=== PATIENT | male | born 1965 | race Asian ===

== ENCOUNTER 2020-08-23 08:09 | Outpatient (REF) | payer OTHER, SELFPAY ==
[2020-08-23 09:27] LABS: Alanine Aminotransferase 39 U/L (0-40); Albumin Level 4.3 g/dL (3.5-5.0); Alkaline Phosphatase 95 U/L (39-117); Anion Gap 14 (12-20); Aspartate Amino Transferase 23 U/L (5-37); Bilirubin Total 0.6 mg/dL (0.0-1.0); Blood Urea Nitrogen 16 mg/dL (9-16); Calcium 9.4 mg/dL (8.4-10.2); Carbon Dioxide 27 mmol/L (22-29); Chloride 104 mmol/L (96-108); Estimated Glomerular Filt Rate > 60; Glucose Random 198 mg/dL (60-115); Sodium 141 mmol/L (135-145); Total Protein 7.1 g/dL (6.5-8.0)
[2020-08-23 09:47] LABS: Prostate Specific Antigen 0.21 ng/mL (<0.05-4.0); Vitamin D 25-OH Total 10.9 ng/mL (>30)
[2020-08-23 09:48] LABS: Estimated Average Glucose 163 mg/dL; Hemoglobin A1c % 7.3 %; Phosphorus 2.3 mg/dL (2.7-4.5)
[2020-08-24 23:07] LABS: Calcium (PTHI) 9.6 mg/dL (8.6-10.3); PTHI 41 pg/mL (14-64)
== END 2020-08-23 08:10 | disposition home or self-care (01) ==
LOC: HO.LAB 08:09
PROVIDERS: PCP Internal Medicine; Visit Provider Internal Medicine
DX: Z00.01 Encounter for general adult medical examination with abnormal findings (principal); E11.65 Type 2 diabetes mellitus with hyperglycemia; E78.2 Mixed hyperlipidemia; E83.52 Hypercalcemia; N40.1 Benign prostatic hyperplasia with lower urinary tract symptoms; R14.0 Abdominal distension (gaseous); R43.8 Other disturbances of smell and taste; R80.8 Other proteinuria
CPT/HCPCS: 80053; 82306; 83036; 83970; 84100; 84153

== ENCOUNTER 2020-11-28 08:36 | Outpatient (REF) | payer OTHER, SELFPAY ==
[2020-11-28 09:33] LABS: Estimated Average Glucose 160 mg/dL; Hemoglobin A1c % 7.2 %
[2020-11-28 09:37] LABS: Alanine Aminotransferase 36 U/L (0-40); Albumin Level 4.5 g/dL (3.5-5.0); Alkaline Phosphatase 96 U/L (39-117); Anion Gap 15 (12-20); Aspartate Amino Transferase 21 U/L (5-37); Bilirubin Total 0.7 mg/dL (0.0-1.0); Blood Urea Nitrogen 11 mg/dL (9-16); Calcium 9.9 mg/dL (8.4-10.2); Carbon Dioxide 25 mmol/L (22-29); Chloride 104 mmol/L (96-108); Estimated Glomerular Filt Rate > 60; Glucose Random 139 mg/dL (60-115); Potassium 3.9 mmol/l (3.3-5.1); Sodium 140 mmol/L (135-145); Total Protein 7.6 g/dL (6.5-8.0)
== END 2020-11-28 08:37 | disposition home or self-care (01) ==
LOC: HO.LAB 08:36
PROVIDERS: PCP Internal Medicine; Visit Provider Internal Medicine
DX: U07.1 COVID-19 (principal); E11.9 Type 2 diabetes mellitus without complications; I10 Essential (primary) hypertension
CPT/HCPCS: 36415; 80053; 83036

== ENCOUNTER 2021-03-01 10:53 | Outpatient (REF) | payer OTHER, SELFPAY ==
[2021-03-01 12:29] LABS: Alanine Aminotransferase 28 U/L (0-40); Albumin Level 4.5 g/dL (3.5-5.0); Alkaline Phosphatase 89 U/L (39-117); Anion Gap 14 (12-20); Aspartate Amino Transferase 19 U/L (5-37); Bilirubin Total 0.5 mg/dL (0.0-1.0); Blood Urea Nitrogen 15 mg/dL (9-16); Carbon Dioxide 27 mmol/L (22-29); Chloride 103 mmol/L (96-108); Cholesterol 177 mg/dL; Estimated Average Glucose 157 mg/dL; Estimated Glomerular Filt Rate > 60; Glucose Random 148 mg/dL (60-115); HDL Cholesterol 44 mg/dL; Hemoglobin A1c % 7.1 %; LDL Cholesterol Calculated 88 mg/dl; Potassium 4.3 mmol/L (3.3-5.1); Sodium 140 mmol/L (135-145); Total Protein 7.3 g/dL (6.5-8.0); Triglycerides 226 mg/dL
== END 2021-03-01 10:54 | disposition home or self-care (01) ==
LOC: HO.LAB 10:53
PROVIDERS: PCP Internal Medicine; Visit Provider Internal Medicine
DX: U07.1 COVID-19 (principal); E11.9 Type 2 diabetes mellitus without complications; I10 Essential (primary) hypertension
CPT/HCPCS: 36415; 80053; 80061; 83036

== ENCOUNTER 2021-05-30 07:54 | Outpatient (REF) | payer OTHER, SELFPAY ==
[2021-05-30 08:52] LABS: Estimated Average Glucose 171 mg/dL; Hemoglobin A1c % 7.6 %
[2021-05-30 08:59] LABS: Alanine Aminotransferase 38 U/L (0-40); Albumin Level 4.5 g/dL (3.5-5.0); Alkaline Phosphatase 94 U/L (39-117); Anion Gap 15 (12-20); Aspartate Amino Transferase 25 U/L (5-37); Bilirubin Total 0.6 mg/dL (0.0-1.0); Blood Urea Nitrogen 8 mg/dL (9-16); Calcium 10.3 mg/dL (8.4-10.2); Carbon Dioxide 25 mmol/L (22-29); Chloride 105 mmol/L (96-108); Cholesterol 189 mg/dL; Estimated Glomerular Filt Rate > 60; Glucose Random 149 mg/dL (60-115); HDL Cholesterol 42 mg/dL; LDL Cholesterol Calculated 92 mg/dl; Potassium 4.1 mmol/L (3.3-5.1); Sodium 141 mmol/L (135-145); Total Protein 7.5 g/dL (6.5-8.0); Triglycerides 277 mg/dL
[2021-05-30 09:14] LABS: Creatinine Urine 65.23 mg/dL; Microalbum/Creatinine Ratio Ur 75.1 ug/mg cr
[2021-05-30 09:38] LABS: Vitamin B12 313 pg/mL (200-900)
== END 2021-05-30 07:55 | disposition home or self-care (01) ==
LOC: HO.LAB 07:54
PROVIDERS: PCP Internal Medicine; Visit Provider Internal Medicine
DX: E11.9 Type 2 diabetes mellitus without complications (principal); I10 Essential (primary) hypertension; R80.9 Proteinuria, unspecified
CPT/HCPCS: 36415; 80053; 80061; 82043; 82607; 83036

== ENCOUNTER 2021-08-28 09:21 | Outpatient (REF) | payer OTHER, SELFPAY ==
[2021-08-28 10:37] LABS: Estimated Average Glucose 157 mg/dL; Hemoglobin A1c % 7.1 %
[2021-08-28 10:40] LABS: Alanine Aminotransferase 29 U/L (0-40); Albumin Level 4.4 g/dL (3.5-5.0); Alkaline Phosphatase 85 U/L (39-117); Anion Gap 13 (12-20); Aspartate Amino Transferase 21 U/L (5-37); Bilirubin Total 0.7 mg/dL (0.0-1.0); Blood Urea Nitrogen 9 mg/dL (9-16); Calcium 9.7 mg/dL (8.4-10.2); Carbon Dioxide 26 mmol/L (22-29); Chloride 103 mmol/L (96-108); Estimated Glomerular Filt Rate > 60; Glucose Random 153 mg/dL (60-115); Potassium 4.2 mmol/L (3.3-5.1); Sodium 138 mmol/L (135-145); Total Protein 7.3 g/dL (6.5-8.0)
== END 2021-08-28 09:22 | disposition home or self-care (01) ==
LOC: HO.LAB 09:21
PROVIDERS: Visit Provider Internal Medicine
DX: Z00.00 Encounter for general adult medical examination without abnormal findings (principal); E11.9 Type 2 diabetes mellitus without complications; E78.00 Pure hypercholesterolemia, unspecified; I10 Essential (primary) hypertension; Q61.9 Cystic kidney disease, unspecified
CPT/HCPCS: 36415; 80053; 83036

== ENCOUNTER 2021-12-09 09:43 | Outpatient (REF) | payer OTHER, SELFPAY ==
[2021-12-09 11:28] LABS: Estimated Average Glucose 189 mg/dL; Hemoglobin A1c % 8.2 %
[2021-12-09 11:52] LABS: Alanine Aminotransferase 29 U/L (0-40); Albumin Level 4.4 g/dL (3.5-5.0); Alkaline Phosphatase 96 U/L (39-117); Anion Gap 13 (12-20); Aspartate Amino Transferase 26 U/L (5-37); Bilirubin Total 0.6 mg/dL (0.0-1.0); Blood Urea Nitrogen 11 mg/dL (9-16); Calcium 10.8 mg/dL (8.4-10.2); Carbon Dioxide 30 mmol/L (22-29); Chloride 103 mmol/L (96-108); Cholesterol 134 mg/dL; Estimated Glomerular Filt Rate > 60; Glucose Random 134 mg/dL (60-115); HDL Cholesterol 43 mg/dL; LDL Cholesterol Calculated 52 mg/dl; Potassium 4.9 mmol/L (3.3-5.1); Sodium 141 mmol/L (135-145); Total Protein 7.6 g/dL (6.5-8.0); Triglycerides 197 mg/dL
[2021-12-09 12:16] LABS: Vitamin B12 697 pg/mL (200-900)
[2021-12-16 01:07] LABS: VITAMIN D (1,25 OH) D3 19 pg/mL; Vit D (1,25-Dihydroxy) Total 19 pg/mL (18-72); Vitamin D (1,25 OH) D2 <8 pg/mL
== END 2021-12-09 09:44 | disposition home or self-care (01) ==
LOC: HO.LAB 09:43
PROVIDERS: PCP Internal Medicine; Visit Provider Internal Medicine
DX: E11.9 Type 2 diabetes mellitus without complications (principal); E78.2 Mixed hyperlipidemia; I10 Essential (primary) hypertension
CPT/HCPCS: 36415; 80053; 80061; 82607; 82652; 83036

== ENCOUNTER 2022-01-14 10:55 | Outpatient (REF) | payer OTHER, SELFPAY ==
[2022-01-18 13:22] LABS: Testosterone, Total 354 ng/dL (250-1100)
== END 2022-01-14 10:56 | disposition home or self-care (01) ==
LOC: HO.LAB 10:55
PROVIDERS: PCP Internal Medicine; Visit Provider Urology
DX: N52.9 Male erectile dysfunction, unspecified (principal)
CPT/HCPCS: 36415; 84403

== ENCOUNTER → 2022-01-23 08:30 | Outpatient (BNVA) | payer OTHER, SELFPAY | PROVIDERS: PCP Internal Medicine; Visit Provider Urology | DX: E29.1 Testicular hypofunction (principal); N52.1 Erectile dysfunction due to diseases classified elsewhere; N28.1 Cyst of kidney, acquired; E11.69 Type 2 diabetes mellitus with other specified complication | CPT/HCPCS: Q3014 ==

== ENCOUNTER 2022-02-10 08:44 | Outpatient (REF) | payer OTHER, SELFPAY ==
--- NOTE | ~2022-02-10 | US_ITS ---
EXAMINATION: US RETROPERITONEAL LIMITED (RENAL ONLY) CLINICAL INFORMATION: Cyst of kidney, acquired. COMPARISON: US retroperitoneal limited (renal only) 06/26/2020, CT abdomen 06/25/2017 TECHNIQUE: Real-time imaging of the kidneys. FINDINGS: RIGHT KIDNEY: 10.3 x 4.2 x 5.3 cm (SAG x AP x TRV). The kidney is normal in size, contour, and echogenicity. Renal cortical thickness is normal. No calculi or focal parenchymal lesions. No hydronephrosis. LEFT KIDNEY: 10.3 x 4.9 x 5.4 cm (SAG x AP x TRV). The kidney is normal in size, contour, and echogenicity. Renal cortical thickness is normal. No renal calculi or hydronephrosis. A 1.6 x 1.5 x 1.5 cm left renal cyst with a thin internal septation and mural calcification, previously 1.7 x 1.4 x 1.6 cm not significantly changed from prior. US/US renal BI IMPRESSION: A 1.6 cm left renal cyst with a thin internal septation and mural calcification, likely benign. No routine follow up imaging recommended.
== END 2022-02-10 08:45 | disposition home or self-care (01) ==
LOC: HO.HMGCX 08:44
PROVIDERS: PCP Internal Medicine; Visit Provider Urology
DX: N28.1 Cyst of kidney, acquired (principal)
CPT/HCPCS: 76775

== ENCOUNTER → 2022-02-27 10:24 | Outpatient (BNVA) | payer OTHER, SELFPAY | PROVIDERS: PCP Internal Medicine; Visit Provider Urology | DX: Z13.89 Encounter for screening for other disorder (principal) ==

== ENCOUNTER 2022-03-14 08:16 | Outpatient (REF) | payer OTHER, SELFPAY ==
[2022-03-14 09:18] LABS: Estimated Average Glucose 186 mg/dL; Hemoglobin A1c % 8.1 %
[2022-03-14 09:42] LABS: Alanine Aminotransferase 25 U/L (0-40); Albumin Level 4.4 g/dL (3.5-5.0); Alkaline Phosphatase 82 U/L (39-117); Anion Gap 14 (12-20); Aspartate Amino Transferase 18 U/L (5-37); Bilirubin Total 0.4 mg/dL (0.0-1.0); Blood Urea Nitrogen 13 mg/dL (9-16); Calcium 10.4 mg/dL (8.4-10.2); Carbon Dioxide 27 mmol/L (22-29); Chloride 104 mmol/L (96-108); Cholesterol 143 mg/dL; Estimated Glomerular Filt Rate > 60; Glucose Random 174 mg/dL (60-115); HDL Cholesterol 43 mg/dL; LDL Cholesterol Calculated 67 mg/dl; Potassium 5.6 mmol/L (3.3-5.1); Sodium 139 mmol/L (135-145); Total Protein 7.4 g/dL (6.5-8.0); Triglycerides 169 mg/dL
== END 2022-03-14 08:17 | disposition home or self-care (01) ==
LOC: HO.LAB 08:16
PROVIDERS: PCP Internal Medicine; Visit Provider Internal Medicine
DX: E11.9 Type 2 diabetes mellitus without complications (principal); I10 Essential (primary) hypertension; E78.2 Mixed hyperlipidemia; Z68.29 Body mass index [BMI] 29.0-29.9, adult
CPT/HCPCS: 36415; 80053; 80061; 83036

== ENCOUNTER 2022-08-27 11:46 | Outpatient (REF) | payer OTHER, SELFPAY ==
[2022-08-29 12:12] LABS: TS Negative Control Passed; TS Panel A 32; TS Panel B 69; TS Positive Control Passed; TSpotTB Positive (Negative)
== END 2022-08-27 11:47 | disposition home or self-care (01) ==
LOC: HO.10HDL 11:46
PROVIDERS: Visit Provider Internal Medicine
DX: M54.89 Other dorsalgia (principal); R76.11 Nonspecific reaction to tuberculin skin test without active tuberculosis
CPT/HCPCS: 36415; 86481

== ENCOUNTER 2022-09-11 13:52 | Outpatient (REF) | payer OTHER, SELFPAY ==
--- NOTE | ~2022-09-11 | XR_ITS ---
EXAMINATION: XR CHEST CLINICAL INFORMATION: Positive TB test COMPARISON: Previous chest x-rays most recent October 2019 TECHNIQUE: 2 views of the chest were obtained. FINDINGS: The cardiac and mediastinal contours are stable. There is chronic subsegmental atelectasis or scarring in the right midlung probably along the right minor fissure that is unchanged. The lungs are otherwise clear. There is no pleural effusion or pneumothorax. There are mild degenerative changes of the spine. XR/XR chest 2V IMPRESSION: No evidence for acute disease in the chest.
[2022-09-11 14:23] LABS: Estimated Average Glucose 186 mg/dL; Hemoglobin A1c % 8.1 %
[2022-09-11 15:10] LABS: Alanine Aminotransferase 36 U/L (0-40); Albumin Level 4.6 g/dL (3.5-5.0); Alkaline Phosphatase 90 U/L (39-117); Anion Gap 18 (12-20); Aspartate Amino Transferase 21 U/L (5-37); Bilirubin Total 0.5 mg/dL (0.0-1.0); Blood Urea Nitrogen 13 mg/dL (9-16); Calcium 10.8 mg/dL (8.4-10.2); Carbon Dioxide 25 mmol/L (22-29); Chloride 103 mmol/L (96-108); Estimated Glomerular Filt Rate > 60; Glucose Random 189 mg/dL (60-115); Potassium 4.4 mmol/L (3.3-5.1); Sodium 142 mmol/L (135-145); Total Protein 7.6 g/dL (6.5-8.0)
[2022-09-11 15:22] LABS: Creatinine Urine 42.21 mg/dL; Microalbum/Creatinine Ratio Ur 23.6 ug/mg cr
[2022-09-11 15:23] LABS: Prostate Specific Antigen 0.35 ng/mL (<0.05-4.0); Thyroid Stimulating Hormone 1.98 uIU/mL (0.32-4.0)
== END 2022-09-11 13:53 | disposition home or self-care (01) ==
LOC: HO.XRAY 13:52
PROVIDERS: PCP Internal Medicine; Visit Provider Internal Medicine
DX: Z00.00 Encounter for general adult medical examination without abnormal findings (principal); Z12.5 Encounter for screening for malignant neoplasm of prostate; F32.9 Major depressive disorder, single episode, unspecified; E78.2 Mixed hyperlipidemia; E11.9 Type 2 diabetes mellitus without complications; R76.11 Nonspecific reaction to tuberculin skin test without active tuberculosis
CPT/HCPCS: 36415; 71046; 80053; 82043; 83036; 84153; 84443

== ENCOUNTER 2022-10-11 10:11 | Outpatient (REF) | payer OTHER, SELFPAY ==
[2022-10-11 11:14] LABS: Estimated Average Glucose 192 mg/dL; Hemoglobin A1c % 8.3 %
[2022-10-11 12:00] LABS: Alanine Aminotransferase 27 U/L (0-40); Albumin Level 4.9 g/dL (3.5-5.0); Alkaline Phosphatase 99 U/L (39-117); Anion Gap 17 (12-20); Aspartate Amino Transferase 21 U/L (5-37); Bilirubin Total 0.5 mg/dL (0.0-1.0); Blood Urea Nitrogen 11 mg/dL (9-16); Calcium 11.4 mg/dL (8.4-10.2); Carbon Dioxide 27 mmol/L (22-29); Chloride 102 mmol/L (96-108); Estimated Glomerular Filt Rate > 60; Glucose Random 210 mg/dL (60-115); Potassium 4.7 mmol/L (3.3-5.1); Prostate Specific Antigen Scr 0.43 ng/mL (<0.05-4.0); Sodium 141 mmol/L (135-145); Total Protein 7.9 g/dL (6.5-8.0)
== END 2022-10-11 10:12 | disposition home or self-care (01) ==
LOC: HO.LAB 10:11
PROVIDERS: PCP Internal Medicine; Visit Provider Internal Medicine
DX: Z00.00 Encounter for general adult medical examination without abnormal findings (principal); E11.9 Type 2 diabetes mellitus without complications; E78.2 Mixed hyperlipidemia; F32.9 Major depressive disorder, single episode, unspecified; Z12.5 Encounter for screening for malignant neoplasm of prostate
CPT/HCPCS: 36415; 80053; 83036; 84153

== ENCOUNTER 2023-01-09 08:08 | Outpatient (REF) | payer OTHER, SELFPAY ==
[2023-01-09 08:52] LABS: Alanine Aminotransferase 26 U/L (0-40); Albumin Level 4.4 g/dL (3.5-5.0); Alkaline Phosphatase 84 U/L (39-117); Anion Gap 13 (12-20); Aspartate Amino Transferase 23 U/L (5-37); Blood Urea Nitrogen 17 mg/dL (9-16); Calcium 10.1 mg/dL (8.4-10.2); Carbon Dioxide 31 mmol/L (22-29); Chloride 102 mmol/L (96-108); Estimated Glomerular Filt Rate > 60; Glucose Random 207 mg/dL (60-115); Potassium 5.2 mmol/L (3.3-5.1); Sodium 141 mmol/L (135-145); Total Protein 7.4 g/dL (6.5-8.0)
[2023-01-09 09:40] LABS: Estimated Average Glucose 169 mg/dL; Hemoglobin A1c % 7.5 %
== END 2023-01-09 08:09 | disposition home or self-care (01) ==
LOC: HO.LAB 08:08
PROVIDERS: PCP Internal Medicine; Visit Provider Internal Medicine
DX: E11.65 Type 2 diabetes mellitus with hyperglycemia (principal); E78.2 Mixed hyperlipidemia; M54.89 Other dorsalgia; R76.12 Nonspecific reaction to cell mediated immunity measurement of gamma interferon antigen response without active tuberculosis; R80.9 Proteinuria, unspecified
CPT/HCPCS: 36415; 80053; 83036

== ENCOUNTER → 2023-04-01 12:46 | Outpatient (BNVA) | payer OTHER, SELFPAY | PROVIDERS: PCP Internal Medicine; Visit Provider Urology | DX: N40.1 Benign prostatic hyperplasia with lower urinary tract symptoms (principal); N52.1 Erectile dysfunction due to diseases classified elsewhere; E11.69 Type 2 diabetes mellitus with other specified complication; N28.1 Cyst of kidney, acquired | CPT/HCPCS: 51798 ==

== ENCOUNTER 2023-05-06 11:44 | Outpatient (REF) | payer OTHER, SELFPAY | END 2023-05-06 11:45 | disposition home or self-care (01) | LOC: HO.LAB 11:44 | PROVIDERS: PCP Internal Medicine; Visit Provider Internal Medicine | DX: E11.65 Type 2 diabetes mellitus with hyperglycemia (principal); I10 Essential (primary) hypertension; R76.12 Nonspecific reaction to cell mediated immunity measurement of gamma interferon antigen response without active tuberculosis | CPT/HCPCS: 36415; 80053; 83036 ==

== ENCOUNTER 2023-06-10 11:44 | Emergency (ER) | payer OTHER, SELFPAY ==
--- NOTE | ~2023-06-10 | XR_ITS ---
EXAMINATION: XR CHEST CLINICAL INFORMATION: Chest pain. COMPARISON: 09/11/2022 chest radiograph. TECHNIQUE: 2 views of the chest were obtained. FINDINGS: No significant abnormality is noted involving the heart, lungs, mediastinum, bony thorax or soft tissues. XR/XR chest 2V IMPRESSION: No acute cardiopulmonary process.
--- NOTE | 2023-06-10 11:47 | ECG_ITS ---
Test Reason : chest pain Blood Pressure : / mmHG Vent. Rate : 081 BPM Atrial Rate : 081 BPM P-R Int : 140 ms QRS Dur : 084 ms QT Int : 368 ms P-R-T Axes : 056 029 038 degrees QTc Int : 427 ms Normal sinus rhythm Normal ECG When compared with ECG of 23-OCT-2019 21:07, No significant change was found Referred By: Generic ED Physician Electronically Signed By:Earl Lopez
--- NOTE | 2023-06-10 11:52 | ED.CHESTPAIN ---
HPI - Chest Pain General Chief Complaint: Chest Pain Stated Complaint: chest pain Time Seen by Provider: 06/10/23 12:08 Source: patient, RN notes reviewed and old records reviewed Mode of arrival: ambulatory History of Present Illness HPI narrative: 57-year-old male with a past medical history of HTN, diabetes, BPH, hypogonadism, presenting to the ED complaining of sudden onset left-sided chest pain radiating to left shoulder described as tightness at 08:30 while sitting at work desk. Denies other associated symptoms including lightheadedness/dizziness, nausea, SOB. Denies similar symptoms in the past. Denies abdominal pain, pedal edema, recent travel, calf pain. Takes ASA denies other anticoagulation MD complaint: chest pain Related Data Home Medications Medication Instructions Recorded Confirmed empagliflozin 25 mg tablet 25 mg PO QAM 01/23/22 04/01/23 (Jardiance) hydrochlorothiazide 25 mg tablet 25 mg PO DAILY 01/23/22 04/01/23 loratadine 10 mg tablet 10 mg PO DAILY 01/23/22 04/01/23 losartan 100 mg tablet 100 mg PO DAILY 01/23/22 04/01/23 rosuvastatin 20 mg tablet 20 mg PO BEDTIME 01/23/22 04/01/23 sitagliptin phosphate 50 1 tab PO BID 01/23/22 04/01/23 mg-metformin 1,000 mg tablet (Janumet) pravastatin 40 mg tablet 40 mg PO DAILY 02/27/22 04/01/23 aspirin 81 mg tablet,delayed 81 mg PO DAILY 08/21/22 04/01/23 release sertraline 50 mg tablet 50 mg PO DAILY 08/21/22 04/01/23 Previous Rx's Medication Instructions Recorded tadalafil 5 mg tablet 5 mg PO DAILY sexual activity 90 04/01/23 days #90 tabs tamsulosin 0.4 mg capsule 0.4 mg PO DAILY 90 days #90 caps 06/01/23 Allergies Allergy/AdvReac Type Severity Reaction Status Date / Time No Known Allergies Allergy Verified 04/01/23 13:00 [No Known Allergies*] Review of Systems Review of Systems: Constitutional: No Fever, No Chills, No Fatigue, No Malaise ENT/Mouth: No Ear Pain, No Nasal Congestion, No sore throat, No Rhinorrhea, No Swallowing Difficulty Eyes: No Eye Pain, No Swelling, No Redness, No Vision Changes Cardiovascular: + Chest Pain, No SOB, No Dyspnea on Exertion, No Orthopnea, No Edema, No Palpitations Respiratory: No Cough, No Sputum, No Wheezing, No Dyspnea Gastrointestinal: No Nausea, No Vomiting, No Diarrhea, No Constipation, No Abdominal pain Musculoskeletal: No joint pain, No Myalgias, No Joint Swelling Skin: No Skin Lesions, No rash Neuro: No Weakness, No Numbness, No Paresthesias, No Loss of Consciousness, No Dizziness, No Headache Yes all other systems are reviewed and are negative Constitutional: Constitutional: Reports as per [facility] Past Medical History Attestation statement: The following information was validated with the patient. Source: old records reviewed Medical History BPH w/o urinary obs/LUTS Diabetes mellitus, type II Elevated blood pressure reading HTN (hypertension) Hypogonadism in male Surgical History History of colonoscopy History of lithotripsy History of surgery Social History Social History Alcohol intake: never Smoked in Last 30 Days: No Use of substances other than those prescribed or required for medical reasons: No Advance Directives: No Physical Exam Vital Signs: Vital Signs: Last Vital Signs Temp 97.8 F 06/10/23 16:00 Pulse 86 06/10/23 16:00 Resp 16 06/10/23 16:00 BP 119/77 06/10/23 16:00 Pulse Ox 98 06/10/23 16:00 O2 Del Method Room Air 06/10/23 16:00 BMI result Body Mass Index 26.5 Const: General: cooperative, healthy appearing and no acute distress Orientation/consciousness: patient oriented x3 Limitations: no limitations HEENT: Head: Yes normal to inspection and Yes atraumatic Ears: hearing grossly normal bilaterally General nose exam: Normal external nose present Face and sinus: Yes normal facial exam Eyes: General: appearance normal, both eyes and all related structures EOM: EOMs intact bilaterally Neck: Neck: Yes normal visual inspection and Yes no meningeal signs Chest: Chest palpation & inspection: normal inspection of the chest, no crepitus and no tenderness Resp: Effort & Inspection: normal respiratory effort and no respiratory distress Auscultation: clear to auscultation bilaterally, no crackles and no wheezes Cardio: Rate: regular rate Heart sounds: S1 normal heart sound present and S2 normal heart sound present GI: Inspection: Yes normal to inspection Palpation (GI): Soft to palpation, nontender, no guarding and not rigid Skin: Rashes: no rashes Wounds: no wounds Neuro: General: patient oriented x3, tone normal and no meningeal signs Gait exam (Neuro): Normal gait present Extrem: General: Yes normal to inspection, Yes no pedal edema and Yes no calf tenderness Course Course Course Narrative: RME - 57 yo male with history of DM, HTN, HLD, BPH who presents to the ER for evaluation of acute onset of non-radiating constant 8/10 chest pain that started at 8:30am while he was at a meeting. Described at a tightness and sensation of a knot. No SOB or nausea. 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 Plan: EKG, cardiac workup -labs reassuring, troponin x2 negative. CXR unremarkable Results discussed with patient including worrisome signs and symptoms and strict return precautions, and when to return to the emergency department. They verbalized understanding and feel safe for discharge at this time. Medical Decision Making Medical Decision Making [facility] Narrative: 57-year-old male with a past medical history of HTN, diabetes, BPH, hypogonadism, presenting to the ED complaining of sudden onset left-sided chest pain radiating to left shoulder described as tightness at 08:30AM while sitting at work desk. On exam vital signs stable, NAD, nontoxic appearing, pain not reproducible, lungs CTA, no pedal edema/tenderness. Concern for ACS. Low suspicion for PE, pneumonia, CHF/DVT or dissection Plan: EKG, labs, CXR Please refer to course for remaining clinical decision making, interpretation of labs/imaging results, and discussions with consultants and/or family members. Differential Diagnosis Differential Diagnoses: The differential diagnosis associated with the presentation includes As above Admission/Observation Consideration of admission/observation: Escalation of care including admission/observation considered Lab Data [facility] Lab Attestation statement: I reviewed the patient's lab results. 06/10/23 12:03 06/10/23 12:03 Labs: Lab Results 06/10/23 06/10/23 06/10/23 Range/Units 12:03 12:03 12:03 WBC 9.0 (4.8-10.8) X10*3/uL RBC 5.57 (4.60-5.80) X10*6/uL Hgb 16.9 (14.0-18.0) g/dl Hct 50.6 (42.0-52.0) % MCV 90.8 (80.0-98.0) fL MCH 30.3 (27.0-33.0) pg MCHC 33.4 (31.0-36.0) g/dl RDW 12.4 (11.0-16.0) % Plt Count 226 (160-400) X10*3/uL MPV 9.8 (9.4-12.4) fL Immature Gran % (Auto) 0.3 (0.0-0.4) % Neut % (Auto) 75.8 H (45-73) % Lymph % (Auto) 14.4 L (20-40) % [place] % (Auto) 7.0 (2-11) % Eos % (Auto) 1.9 (0-4) % Baso % (Auto) 0.6 (0-2) % Lymph # (Auto) 1.3 (1.2-4.9) X10*3/uL [place] # (Auto) 0.6 (0.1-1.2) X10*3/uL Eos # (Auto) 0.2 (0.0-0.4) X10*3/uL Baso # (Auto) 0.1 (0.0-0.2) X10*3/uL Abs Immat Gran (auto) 0.03 (0.00-0.03) X10*3/uL Absolute Neuts (auto) 6.8 (2.0-8.3) x10*3/uL Absolute Nucleated RBC 0.000 (0.0-0.012) X10*3/uL Nucleated RBC % (auto) 0.0 (0.0-0.2) /100WBC Sodium 143 (135-145) mmol/L Potassium 4.3 (3.3-5.1) mmol/L Chloride 103 (96-108) mmol/L Carbon Dioxide 29 (22-29) mmol/L Anion Gap 15 (12-20) BUN 11 (9-16) mg/dL Creatinine 1.00 (0.5-1.4) mg/dL Estim Creat Clear Calc 76.1 Estimated GFR > 60 Random Glucose 160 H (60-115) mg/dL Calcium 11.1 H (8.4-10.2) mg/dL Magnesium 2.0 (1.6-2.6) mg/dL Total Bilirubin 0.4 (0.0-1.0) mg/dL Direct Bilirubin 0.2 (0.0-0.5) mg/dL AST 22 (5-37) U/L ALT 33 (0-40) U/L Alkaline Phosphatase 82 (39-117) U/L Troponin I High Sens < 2.7 (<3.5-35.0) ng/L Total Protein 8.0 (6.5-8.0) g/dL Albumin 4.5 (3.5-5.0) g/dL 06/10/23 Range/Units 14:53 WBC (4.8-10.8) X10*3/uL RBC (4.60-5.80) X10*6/uL Hgb (14.0-18.0) g/dl Hct (42.0-52.0) % MCV (80.0-98.0) fL MCH (27.0-33.0) pg MCHC (31.0-36.0) g/dl RDW (11.0-16.0) % Plt Count (160-400) X10*3/uL MPV (9.4-12.4) fL Immature Gran % (Auto) (0.0-0.4) % Neut % (Auto) (45-73) % Lymph % (Auto) (20-40) % [place] % (Auto) (2-11) % Eos % (Auto) (0-4) % Baso % (Auto) (0-2) % Lymph # (Auto) (1.2-4.9) X10*3/uL [place] # (Auto) (0.1-1.2) X10*3/uL Eos # (Auto) (0.0-0.4) X10*3/uL Baso # (Auto) (0.0-0.2) X10*3/uL Abs Immat Gran (auto) (0.00-0.03) X10*3/uL Absolute Neuts (auto) (2.0-8.3) x10*3/uL Absolute Nucleated RBC (0.0-0.012) X10*3/uL Nucleated RBC % (auto) (0.0-0.2) /100WBC Sodium (135-145) mmol/L Potassium (3.3-5.1) mmol/L Chloride (96-108) mmol/L Carbon Dioxide (22-29) mmol/L Anion Gap (12-20) BUN (9-16) mg/dL Creatinine (0.5-1.4) mg/dL Estim Creat Clear Calc Estimated GFR Random Glucose (60-115) mg/dL Calcium (8.4-10.2) mg/dL Magnesium (1.6-2.6) mg/dL Total Bilirubin (0.0-1.0) mg/dL Direct Bilirubin (0.0-0.5) mg/dL AST (5-37) U/L ALT (0-40) U/L Alkaline Phosphatase (39-117) U/L Troponin I High Sens < 2.7 (<3.5-35.0) ng/L Total Protein (6.5-8.0) g/dL Albumin (3.5-5.0) g/dL Independent Interpretation I performed an independent interpretation of an: EKG (EKG normal sinus rhythm at a rate of 81. ID interval 140. QTC 427. No significant change when compared to prior. No STEMI) Radiology Impression Discussion of test interpretation with radiology: I have reviewed the radiologist's reading. External Record Review External record reviewed: Inpatient record, Office record, Outpatient record, Prior outpatient labs, Prior outpatient radiology, Primary care record and Outside ED record Tests considered The following testing was considered but not selected: As above Chronic Conditions Patient?s care impacted by: Diabetes and Hypertension Discharge Plan Discharge Clinical Impression: Chest pain Patient Disposition: Home, Self-Care Instructions: Chest Pain (DC) Additional Instructions: Your blood work and chest x-ray were reassuring Please follow-up with your doctor and Cardiology If symptoms persist or worsen you have constant or worsening chest pain, developed shortness of breath, swelling in your legs return to the emergency department Prescriptions: No Action tamsulosin 0.4 mg capsule 0.4 mg PO DAILY 90 Days Qty: 90 1RF loratadine 10 mg tablet 10 mg PO DAILY Janumet 50-1,000 mg tablet 1 tab PO BID losartan 100 mg tablet 100 mg PO DAILY rosuvastatin 20 mg tablet 20 mg PO BEDTIME hydrochlorothiazide 25 mg tablet 25 mg PO DAILY Jardiance 25 mg tablet 25 mg PO QAM tadalafil 5 mg tablet 5 mg PO DAILY 90 Days Qty: 90 1RF pravastatin 40 mg tablet 40 mg PO DAILY sertraline 50 mg tablet 50 mg PO DAILY aspirin 81 mg tablet,delayed release (DR/EC) 81 mg PO DAILY Referrals: [facility] [Provider Group] - 1 week Winnie Morales MD [Primary Care Provider] -
[2023-06-10 11:54] VITALS: BP 137/84; PULSE 84; RESP 18; TEMP 36.6; O2SAT 95; BMI 26.5
[2023-06-10 12:07] LABS: MANUAL DIFF FLAG NO
[2023-06-10 12:14] LABS: Basophils Absolute Auto 0.1 X10*3/uL (0.0-0.2); Basophils Percent Auto 0.6 % (0-2); Eosinophils Absolute Auto 0.2 X10*3/uL (0.0-0.4); Eosinophils Percent Auto 1.9 % (0-4); Hematocrit 50.6 % (42.0-52.0); Hemoglobin 16.9 g/dl (14.0-18.0); Imm Gran Abs Auto 0.03 X10*3/uL (0.00-0.03); Imm Gran Pct Auto 0.3 % (0.0-0.4); Lymphocytes Absolute Auto 1.3 X10*3/uL (1.2-4.9); Lymphocytes Percent Auto 14.4 % (20-40); Mean Corpuscular HGB Conc 33.4 g/dl (31.0-36.0); Mean Corpuscular Hemoglobin 30.3 pg (27.0-33.0); Mean Corpuscular Volume 90.8 fL (80.0-98.0); Mean Platelet Volume 9.8 fL (9.4-12.4); Monocytes Absolute Auto 0.6 X10*3/uL (0.1-1.2); Neutrophils Absolute Auto 6.8 x10*3/uL (2.0-8.3); Neutrophils Percent Auto 75.8 % (45-73); Platelet Count 226 X10*3/uL (160-400); Red Blood Count 5.57 X10*6/uL (4.60-5.80); Red Cell Distribution Width 12.4 % (11.0-16.0)
[2023-06-10 12:22] LABS: Alanine Aminotransferase 33 U/L (0-40); Albumin Level 4.5 g/dL (3.5-5.0); Alkaline Phosphatase 82 U/L (39-117); Anion Gap 15 (12-20); Aspartate Amino Transferase 22 U/L (5-37); Bilirubin Direct 0.2 mg/dL (0.0-0.5); Bilirubin Total 0.4 mg/dL (0.0-1.0); Blood Urea Nitrogen 11 mg/dL (9-16); Calcium 11.1 mg/dL (8.4-10.2); Carbon Dioxide 29 mmol/L (22-29); Chloride 103 mmol/L (96-108); Creatinine Clr Calc Pharmacy 76.1; Estimated Glomerular Filt Rate > 60; Glucose Random 160 mg/dL (60-115); Potassium 4.3 mmol/L (3.3-5.1); Sodium 143 mmol/L (135-145)
[2023-06-10 12:38] LABS: Troponin-I High Sensitivity < 2.7 ng/L (<3.5-35.0)
[2023-06-10 12:52] VITALS: BP 116/79; PULSE 75; RESP 22; TEMP 36.8; O2SAT 97
--- NOTE | 2023-06-10 13:42 | PC.NURSE ---
resting comfortably in room, vss. patient reports improvement with chest pain. plan for repeat troponin at approx 1500 patient aware. call hagen within reach.
[2023-06-10 15:39] LABS: Troponin-I High Sensitivity < 2.7 ng/L (<3.5-35.0)
[2023-06-10 16:00] VITALS: BP 119/77; PULSE 86; RESP 16; TEMP 36.6; O2SAT 98
== END 2023-06-10 16:30 | disposition home or self-care (01) ==
PROVIDERS: Physician Assistant; Emergency Provider Student in an Organized Health Care Education/Training Program; PCP Internal Medicine
DX: R07.89 Other chest pain (principal); I10 Essential (primary) hypertension; M25.512 Pain in left shoulder; Z79.899 Other long term (current) drug therapy
CPT/HCPCS: 36415; 71046; 80048; 80076; 83735; 84484; 85025; 93005; 99283; 99285

== ENCOUNTER → 2023-06-10 11:47 | Outpatient (BNV) | payer OTHER, SELFPAY | PROVIDERS: Emergency Provider Student in an Organized Health Care Education/Training Program; PCP Internal Medicine; Visit Provider Internal Medicine Cardiovascular Disease | DX: R07.9 Chest pain, unspecified (principal) | CPT/HCPCS: 93010 ==

== ENCOUNTER 2023-08-05 10:59 | Outpatient (REF) | payer OTHER, SELFPAY ==
[2023-08-05 11:11] LABS: MANUAL DIFF FLAG NO
[2023-08-05 11:43] LABS: Estimated Average Glucose 180 mg/dL; Hemoglobin A1c % 7.9 % (<6.0)
[2023-08-05 11:45] LABS: Basophils Percent Auto 0.5 % (0-2); Eosinophils Absolute Auto 0.2 X10*3/uL (0.0-0.4); Hematocrit 51.5 % (42.0-52.0); Hemoglobin 17.1 g/dl (14.0-18.0); Imm Gran Abs Auto 0.02 X10*3/uL (0.00-0.03); Imm Gran Pct Auto 0.3 % (0.0-0.4); Lymphocytes Absolute Auto 1.5 X10*3/uL (1.2-4.9); Lymphocytes Percent Auto 19.9 % (20-40); Mean Corpuscular HGB Conc 33.2 g/dl (31.0-36.0); Mean Corpuscular Hemoglobin 29.7 pg (27.0-33.0); Mean Corpuscular Volume 89.6 fL (80.0-98.0); Mean Platelet Volume 9.9 fL (9.4-12.4); Monocytes Absolute Auto 0.7 X10*3/uL (0.1-1.2); Monocytes Percent Auto 8.8 % (2-11); Neutrophils Percent Auto 67.5 % (45-73); Platelet Count 268 X10*3/uL (160-400); Red Blood Count 5.75 X10*6/uL (4.60-5.80); Red Cell Distribution Width 13.1 % (11.0-16.0); White Blood Count 7.4 X10*3/uL (4.8-10.8)
[2023-08-05 12:10] LABS: Alanine Aminotransferase 44 U/L (0-40); Albumin Level 4.5 g/dL (3.5-5.0); Alkaline Phosphatase 105 U/L (39-117); Anion Gap 14 (12-20); Aspartate Amino Transferase 31 U/L (5-37); Bilirubin Total 0.5 mg/dL (0.0-1.0); Blood Urea Nitrogen 9 mg/dL (9-16); Calcium 11.2 mg/dL (8.4-10.2); Carbon Dioxide 26 mmol/L (22-29); Chloride 105 mmol/L (96-108); Cholesterol 124 mg/dL (<200); Estimated Glomerular Filt Rate > 60; Glucose Random 101 mg/dL (60-115); HDL Cholesterol 37 mg/dL (>40); LDL Cholesterol Calculated 53 mg/dL (<100); Potassium 4.4 mmol/L (3.3-5.1); Sodium 141 mmol/L (135-145); Total Protein 7.9 g/dL (6.5-8.0); Triglycerides 171 mg/dL (<150)
== END 2023-08-05 11:00 | disposition home or self-care (01) ==
LOC: HO.LAB 10:59
PROVIDERS: PCP Internal Medicine; Visit Provider Internal Medicine
DX: Z12.5 Encounter for screening for malignant neoplasm of prostate (principal); E78.2 Mixed hyperlipidemia; I10 Essential (primary) hypertension; M54.50 Low back pain, unspecified; N40.0 Benign prostatic hyperplasia without lower urinary tract symptoms; R80.9 Proteinuria, unspecified
CPT/HCPCS: 36415; 80053; 80061; 83036; 84153; 85025

== ENCOUNTER 2024-02-25 12:24 | Emergency (ER) | payer OTHER, SELFPAY ==
--- NOTE | ~2024-02-25 | XR_ITS ---
EXAMINATION: XR CHEST CLINICAL INFORMATION: Coughing x1 week. COMPARISON: Chest radiograph dated 06/10/2023. TECHNIQUE: 2 views of the chest were obtained. FINDINGS: The cardiomediastinal silhouette is normal in size and configuration. There is a stable appearing linear opacity within the right mid lung, likely representing scarring. There is no consolidation within either lung to indicate pneumonia. The pleural spaces are clear. There is no pneumothorax. No acute osseous abnormality. XR/XR chest 2V IMPRESSION: No active disease. Stable appearance of the heart and lungs.
--- NOTE | 2024-02-25 12:38 | ED_ITS ---
HPI - General Adult General Chief complaint: Upper Respiratory Symptoms Stated complaint: Difficulty breathing, cough Time Seen by Provider: 02/25/24 12:50 Source: patient Mode of arrival: ambulatory Limitations: no limitations History of Present Illness HPI narrative: 58 yo male with history of DM2, BPH, renal cysts who presents to the ER for evaluation of 1 week of sore throat, chest congestion, cough, nasal congestion. He was not able to sleep last night due to coughing. He is intermittently bringing up phlegm. No fevers. He also reports sore throat, pain with swallowing. He has been eating and drinking normally. No fevers. No known sick contacts. No chest pain or difficulty breathing. No nausea, vomiting, diarrhea, abdominal pain. MD complaint: Sore throat and cough Onset (ago): week(s) (1) Location: mouth and chest Radiation: non-radiation Severity: moderate Quality: aching Pain Consistency: intermittent Relieving factors: none Exacerbating factors: other ( coughing) Associated symptoms: cough, headaches and malaise Treatments prior to arrival: none Related Data Home Medications ?Medication ?Instructions ?Recorded ?Confirmed empagliflozin 25 mg tablet 25 mg PO QAM 01/23/22 04/01/23 (Jardiance) hydrochlorothiazide 25 mg tablet 25 mg PO DAILY 01/23/22 04/01/23 loratadine 10 mg tablet 10 mg PO DAILY 01/23/22 04/01/23 losartan 100 mg tablet 100 mg PO DAILY 01/23/22 04/01/23 rosuvastatin 20 mg tablet 20 mg PO BEDTIME 01/23/22 04/01/23 sitagliptin phosphate 50 1 tab PO BID 01/23/22 04/01/23 mg-metformin 1,000 mg tablet (Janumet) pravastatin 40 mg tablet 40 mg PO DAILY 02/27/22 04/01/23 aspirin 81 mg tablet,delayed 81 mg PO DAILY 08/21/22 04/01/23 release sertraline 50 mg tablet 50 mg PO DAILY 08/21/22 04/01/23 Previous Rx's ?Medication ?Instructions ?Recorded tadalafil 5 mg tablet 5 mg PO DAILY sexual activity 90 04/01/23 days #90 tabs clotrimazole-betamethasone 1 1 appl topical BID #45 grams 07/24/23 %-0.05 % topical cream tamsulosin 0.4 mg capsule 0.4 mg PO DAILY 90 days #90 caps 12/08/23 amoxicillin 875 mg-potassium 1 tab PO BID #20 tabs 02/25/24 clavulanate 125 mg tablet benzonatate 100 mg capsule 100 mg PO TID PRN cough #20 caps 02/25/24 Allergies Allergy/AdvReac Type Severity Reaction Status Date / Time No Known Allergies Allergy Verified 02/25/24 12:40 [No Known Allergies*] Review of Systems Review of Systems: Yes all other systems are reviewed and are negative [facility] Past Medical History Medical History BPH w/o urinary obs/LUTS Diabetes mellitus, type II Elevated blood pressure reading HTN (hypertension) Hypogonadism in male Surgical History History of colonoscopy History of lithotripsy History of surgery Social History Social History Alcohol intake: never Advance Directives: No Do you have a plan to hurt others: No Plan Physical Exam ED Vital Signs: Vital Signs - 24 hr 02/25/24 12:39 Temperature 97.9 F Pulse Rate 97 Respiratory Rate 16 Blood Pressure 135/84 Pulse Oximetry 93 Oxygen Delivery Method Room Air BMI result Body Mass Index 26.1 Appearance: Alert. Oriented X3. No acute distress. Head: normocephalic, atraumatic. Eyes: Pupils equal, round and reactive to light. ENT: Pharynx normal. visualized tonsils are erythematous without exudate. Uvula midline. Handling secretions normally. Normal tympanic membranes bilaterally. Neck: Normal inspection. Neck supple. CVS: Normal heart rate and rhythm. Pulses normal. Respiratory: No respiratory distress. Breath sounds normal. Abdomen: Soft and nontender. +BS x4 Skin: Skin warm and dry. Normal skin color. Normal skin turgor. No rashes. Extremities: No lower extremity edema. No joint swelling. Neuro/psych: Oriented X 3. Grossly normal, nonfocal. Normal speech and cognition. Course Course Course Narrative: This is a rapid medical exam: Additional HPI, ROS, PE not included below will be deferred to primary provider. Patient is a 58-year-old male with history of T2DM, BPH, renal cyst presenting to the emergency department with complaint of cough, chest congestion x 1 week. Yesterday was worst, unable to sleep. Also c/o sore throat. Denies fevers. VSS in triage. Plan: viral and strep swabs, CXR Medical Decision Making Medical Decision Making [facility] Narrative: 58-year-old male presents to the ER for evaluation of 1 week of chest congestion, coughing, nasal congestion, sore throat. Is vaccinated for COVID- 19. He denies any difficulty breathing or shortness of breath. His vital signs are stable. His lungs are clear on examination. His tonsils are erythematous without exudate. He is handling secretions normally and nontoxic appearing. Testing today shows he is positive for COVID-19 as well as strep throat. Will treat with oral antibiotics. Stable for discharge home. Supportive care and symptomatic management discussed as well as return precautions. Stable for discharge home Differential Diagnosis Differential Diagnoses: The differential diagnosis associated with the presentation includes strep, covid, flu, rsv, other viral syndrome, bronchitis, pneumonia, no evidence of peritonsillar abcsess or retropharyngeal abscess Lab Data [facility] Lab Attestation statement: I reviewed the patient's lab results. Labs: Lab Results 02/25/24 Range/Units 12:50 Influenza Type A (PCR) NEGATIVE (Negative) Influenza Type B (PCR) NEGATIVE (Negative) RSV RNA Qual (PCR) NEGATIVE (Negative) SARS-CoV-2 RNA (RT-PCR) POSITIVE A (Negative) S. pyogenes GrpA MICHELLE Positive A (Negative) Independent Interpretation I performed an independent interpretation of an: Plain X-Ray Interpretation: no infiltrate or effusion, agree with radiology read Radiology Impression Discussion of test interpretation with radiology: I have reviewed the radiologist's reading. Radiologist Impression: EXAMINATION: XR CHEST CLINICAL INFORMATION: Coughing x1 week. COMPARISON: Chest radiograph dated 06/10/2023. TECHNIQUE: 2 views of the chest were obtained. FINDINGS: The cardiomediastinal silhouette is normal in size and configuration. There is a stable appearing linear opacity within the right mid lung, likely representing scarring. There is no consolidation within either lung to indicate pneumonia. The pleural spaces are clear. There is no pneumothorax. No acute osseous abnormality. XR/XR chest 2V IMPRESSION: No active disease. Stable appearance of the heart and lungs. External Record Review External record reviewed: Outpatient record and Prior outpatient labs Prescription Management I considered prescription management with: Pain Medication, Antiviral and Antibiotic Chronic Conditions Patient?s care impacted by: Diabetes Critical Care Time Critical Care Time Critical Care Time: No Discharge Plan Discharge Clinical Impression: COVID-19, Acute streptococcal pharyngitis Patient Disposition: Home, Self-Care Instructions: Strep Throat (DC), COVID-19 (Coronavirus Disease 2019) (ED) Additional Instructions: You were found to be COVID-19 POSITIVE today. Your chest x-ray and oxygen levels were normal. Rest. Drink plenty of fluids. Do not go out in public while you are not feeling well. Take over the counter cold/flu medications as needed for your symptoms. Take Tylenol and/or Motrin as needed for fevers and body aches. Follow up with your doctor this week. If you shortness of breath worsens , if you develop difficulty breathing or any other concerning symptom come back to the ER for further evaluation. Prescriptions: New benzonatate 100 mg capsule 100 mg PO TID PRN (Reason: cough) Qty: 20 0RF amoxicillin-pot clavulanate 875-125 mg tablet 1 tab PO BID Qty: 20 0RF No Action clotrimazole-betamethasone 1-0.05 % cream 1 appl topical BID Qty: 45 0RF tamsulosin 0.4 mg capsule 0.4 mg PO DAILY 90 Days Qty: 90 1RF loratadine 10 mg tablet 10 mg PO DAILY Janumet 50-1,000 mg tablet 1 tab PO BID losartan 100 mg tablet 100 mg PO DAILY rosuvastatin 20 mg tablet 20 mg PO BEDTIME hydrochlorothiazide 25 mg tablet 25 mg PO DAILY Jardiance 25 mg tablet 25 mg PO QAM tadalafil 5 mg tablet 5 mg PO DAILY 90 Days Qty: 90 1RF pravastatin 40 mg tablet 40 mg PO DAILY sertraline 50 mg tablet 50 mg PO DAILY aspirin 81 mg tablet,delayed release (DR/EC) 81 mg PO DAILY Print Language: Jan
[2024-02-25 12:39] VITALS: BP 135/84; PULSE 97; RESP 16; TEMP 36.6; O2SAT 93; BMI 26.1
[2024-02-25 13:40] LABS: Influenza A PCR NEGATIVE (Negative); Influenza B PCR NEGATIVE (Negative); Resp Syncy Virus RNA Qual PCR NEGATIVE (Negative); SARS COV2 PCR INHOUSE POSITIVE (Negative)
[2024-02-25 14:27] LABS: IDNOW Serial# 08D9AD1C; Strep A Nucleic Acid Positive (Negative)
[2024-02-25 14:32] VITALS: BP 145/68; PULSE 85; RESP 18; TEMP 36.6; O2SAT 98
== END 2024-02-25 14:33 | disposition home or self-care (01) ==
PROVIDERS: Registered Nurse Emergency; Emergency Provider Emergency Medicine; PCP Internal Medicine
DX: U07.1 COVID-19 (principal); J02.0 Streptococcal pharyngitis; R06.02 Shortness of breath; R05.9 Cough, unspecified; R51.9 Headache, unspecified
CPT/HCPCS: 0241U; 71046; 87651; 99282; 99283

== ENCOUNTER 2024-03-05 08:43 | Outpatient (REF) | payer OTHER, SELFPAY ==
[2024-03-05 10:00] LABS: Alanine Aminotransferase 34 U/L (0-40); Albumin Level 4.4 g/dL (3.5-5.0); Alkaline Phosphatase 107 U/L (39-117); Anion Gap 14 (12-20); Aspartate Amino Transferase 27 U/L (5-37); Bilirubin Total 0.7 mg/dL (0.0-1.0); Blood Urea Nitrogen 8 mg/dL (9-16); Calcium 10.9 mg/dL (8.4-10.2); Carbon Dioxide 28 mmol/L (22-29); Chloride 101 mmol/L (96-108); Estimated Glomerular Filt Rate > 60; Glucose Random 136 mg/dL (60-115); Potassium 4.4 mmol/L (3.3-5.1); Sodium 139 mmol/L (135-145)
[2024-03-05 10:02] LABS: Estimated Average Glucose 194 mg/dL; Hemoglobin A1c % 8.4 % (<6.0)
[2024-03-05 10:26] LABS: Prostate Specific Antigen 0.46 ng/mL (<0.05-4.0)
== END 2024-03-05 08:44 | disposition home or self-care (01) ==
LOC: HO.LAB 08:43
PROVIDERS: Urology; PCP Internal Medicine; Visit Provider Internal Medicine
DX: N40.1 Benign prostatic hyperplasia with lower urinary tract symptoms (principal); E11.65 Type 2 diabetes mellitus with hyperglycemia; I10 Essential (primary) hypertension; Z12.5 Encounter for screening for malignant neoplasm of prostate
CPT/HCPCS: 36415; 80053; 83036; 84153

== ENCOUNTER → 2024-04-05 12:53 | Outpatient (REF) | payer OTHER, SELFPAY ==
--- NOTE | 2024-04-05 12:58 | CA_ITS ---
Transthoracic Echocardiogram Patient (Last, First, Middle): Dequan Jordan, Gender: Male Date of : 1965 Age: 58 Procedure Date: 04/05/2024 Procedure Type: Transthoracic Echocardiogram Location: OP Height: 170.18 cm Weight: 77.11 kg BSA: 1.89 m2 Heart Rate: 77 bpm BP: 118 / 60 mmHg Chisel Trimmer: Referring MD: Winnie Morales MD Manager Switch: Joshua Fine MD Symptoms: CHEST DISCOMFORT W/LOW VOLTAGE EKG Study Quality: Adequate w contrast ECG Rhythm: Sinus Conclusions: - Essentially normal study Findings Procedure Information Contrast agent, definity, is being given per protocol without apparent complications. Left Ventricle Normal left ventricular size, thickness, and systolic function. The visually estimated ejection fraction is between 65-70%. Spectral Doppler is indicative of a normal filling pattern. Right Ventricle Normal right ventricular cavity size and systolic function. Atria The left atrium is normal in size. Interatrial shunt cannot be excluded. The right atrium was not well visualized. Aortic Valve Normal aortic valve structure and function. There is no aortic valve stenosis. There is no aortic valve regurgitation. Mitral Valve Likely normal mitral valve structure and function. There is no mitral valve regurgitation. There is no mitral valve stenosis. Tricuspid Valve Likely normal tricuspid valve structure and function. There is trace tricuspid valve regurgitation. The right ventricular systolic pressure is normal. The right ventricular systolic pressure is 23 mmHg. Normal right atrial pressure. There is no evidence of pulmonary hypertension. Great Vessels The aorta was not well visualized. The pulmonary artery was not well visualized. There is no dilatation of the ascending aorta measuring 3.00 cm. Venous The inferior vena cava is normal in size and collapses greater than 50% with inspiration. Pericardium/Pleural There is no evidence of pericardial effusion. Prior Study Comparison No prior study available for comparison. Measurements 2D Linear Measurements IVSd: 1.00 0.6-0.9/0.6-1.0 cm LVIDd: 4.12 3.9-5.3/4.2-5.9 cm LVIDs: 2.52 2.0-3.6 cm LVPWd: 1.00 0.7-1.1 cm LA Diam: 3.20 2.7-3.8/3.0-4.0 cm LVOT Diam: 2.20 3.0+(-)1.3 cm 2D Volumes LV EDV: 83.60 56-104/67-155 ml LV ESV: 27.10 19-49/22-58 ml LA ESV A/L: 14.40 22-52/18-58 ML/M2 2D Systolic Function EF 4C: 61.80 >55% EF 2C: 71.80 >55% EF BiP: 67.00 >55% Mitral Valve MV Pk E: 0.51 MV PK A: 0.50 MV Decel Time: 145.00 E/A: 1.00 E'Lateral: 9.36 E'Medial: 5.55 E/E' Med: 9.30 E/E' Lat: 5.50 PHT: 42.00 MVA PHT: 5.24 Aortic Valve AoV Pk Juan: 1.11 AoV Mn Juan: 0.68 AoV VTI: 21.80 AoV Pk Grad: 5.00 Aov Mn Grad: 2.00 CHIKI Cont.VTI: 2.67 LVOT LVOT Pk Juan: 0.80 LVOT Mn Juan: 0.45 LVOT VTI: 15.30 LVOT Pk Grad: 3.00 LVOT Mn Grad: 1.00 LVOT Diam: 2.20 Diastolic Function MV Pk E: 0.51 MV Pk A: 0.50 E/A: 1.00 E'Medial: 5.55 E/E' Med: 9.30 E' Laterial: 9.36 E/E' Lat: 5.50 IVC Diam Exp: 1.53 Right Ventricle TAPSE (mm): 23.00 TVS' Juan: 12.30 Tricuspid Valve TR Pk Juan: 2.21 TR Pk Grad: 20.00 RA Press: 3.00 RVSP: 23.00 IVC Diam Exp: 1.53 Great Vessels Aorta Sinus of Valsalva: 3.60 2.0-3.5 cm Ao Asc: 3.00 2.1-3.4 cm Pulmonary Valve PV Pk Juan: 0.81 Peak PV Grad: 3.00 Updated in Other Vendor System with Status of Final Joshua Fine MD electronically signed on 04/05/2024 5:48:08 PM with status of Final
== END ==
LOC: HO.CARD 12:53
PROVIDERS: PCP Internal Medicine; Visit Provider Internal Medicine
DX: R07.9 Chest pain, unspecified (principal)
CPT/HCPCS: 93306; Q9957

== ENCOUNTER → 2024-04-05 12:58 | Outpatient (BNV) | payer OTHER, SELFPAY | PROVIDERS: PCP Internal Medicine; Visit Provider Internal Medicine Cardiovascular Disease | DX: R07.9 Chest pain, unspecified (principal) | CPT/HCPCS: 93306 ==

== ENCOUNTER 2024-05-17 15:31 | Outpatient (AMB) | payer OTHER, SELFPAY ==
--- NOTE | 2024-05-17 16:22 | A.OFFVIS_ITS ---
Intake Visit Reasons: 1y/PSA(set) Intake Note: Patient is present for PSA Urology Med: Tadalafil. Tamsulosin Allergies No Known Allergies [No Known Allergies*] Allergy (Verified 02/25/24 12:40) Medication List - Last Reconciled 05/17/24 by Nikolas Alfaro MD amoxicillin-pot clavulanate 875-125 mg 1 tab PO BID aspirin 81 mg PO DAILY benzonatate 100 mg PO TID PRN clotrimazole-betamethasone 1-0.05 % 1 appl topical BID empagliflozin (Jardiance) 25 mg PO QAM hydrochlorothiazide 25 mg PO DAILY loratadine 10 mg PO DAILY losartan 100 mg PO DAILY pravastatin 40 mg PO DAILY rosuvastatin 20 mg PO BEDTIME sertraline 50 mg PO DAILY sitagliptin phos-metformin 50-1,000 mg (Janumet) 1 tab PO BID tadalafil 5 mg PO DAILY 90 days tamsulosin 0.4 mg PO DAILY 90 days HPI Comments Details: Dequan [place]. He is a patient of Dr. Lyle. Seen for the following urologic conditions - renal cyst - hypogonadism - lower urinary tract symptoms - erectile dysfunction diabetic Yearly follow-up Continue with tamsulosin and combination tadalafil Prescription refill Struggling with diabetic control Low testosterone Previously used testosterone gel and injections. Struggled to obtain stable testosterone using both modalities. Recommend testicle Lower urinary tract symptoms Hesistancy Current medication includes tamsulosin through PCP This is been effective Hypogonadism Prior evaluation Prior use of testosterone Laboratories - 08/19 281, 01/21 T 354 P 0.2 Erectile dysfunction Progressive Comorbidity with diabetes multi therapy with dyslipidemia Able to obtain but cannot maintain erection Good response to daily Cialis 5 mg PFSH Medical History BPH w/o urinary obs/LUTS Diabetes mellitus, type II Elevated blood pressure reading HTN (hypertension) Hypogonadism in male Surgical History History of colonoscopy History of lithotripsy History of surgery Social History Alcohol intake: never Review of Systems Const Denies chills and Denies fever(s) Card Reports no additional complaints and Denies syncope Resp Denies cough GI Denies abdominal pain and Denies heartburn Reports as per HPI and Denies change in libido Neuro Denies syncope Psych Denies change in libido Endo Denies change in libido Physical Exam Const General: cooperative, healthy appearing, comfortable and no acute distress Orientation/consciousness: patient oriented x3 HEENT Face and sinus: Yes normal facial exam Mouth: moist mucous membranes Neck Neck: Yes normal visual inspection, Yes full ROM and Yes trachea midline Chest Chest palpation & inspection: normal inspection of the chest Resp Effort & Inspection: normal respiratory effort, able to speak in complete sentences and no respiratory distress GI Inspection: Yes normal to inspection Back/Spine/Pelvis Cervical Spine: normal cervical lordosis Thoracic/Lumbar Spine: thoracic and lumbar spine normal to inspection Skin General skin exam: no rashes or lesions noted Neuro General: patient oriented x3, gait normal, tone normal and moves all extremities Extrem General: Yes normal to inspection and Yes capillary refill normal Assessment & Plan Assessment & Plan (1) Erectile dysfunction associated with type 2 diabetes mellitus: Code(s): E11.69 - Type 2 diabetes mellitus with other specified complication; N52.1 - Erectile dysfunction due to diseases classified elsewhere Category: Medical (2) Hypogonadism in male: Code(s): E29.1 - Testicular hypofunction Category: Medical (3) BPH loc w urin obs/LUTS: Code(s): N40.1 - Benign prostatic hyperplasia with lower urinary tract symptoms Category: Medical Plan Testopel Lab work now Orders: Orders Testosterone, Free/Total Today E29.1 - Testicular hypofunction, R68.82 - Decreased libido Medications: New testosterone (Testopel) 6 pellets subcutaneous 450 mg subcut ONCE 90 days 6 ea 1RF E29.1 - Testicular hypofunction Changed From tadalafil 5 mg PO DAILY 90 days 90 tabs 1RF sexual activity E11.69 - Type 2 diabetes mellitus with other specified complication, N52.1 - Erectile dysfunction due to diseases classified elsewhere To tadalafil 10 mg PO DAILY 90 days 90 tabs 1RF sexual activity E11.69 - Type 2 diabetes mellitus with other specified complication, N52.1 - Erectile dysfunction due to diseases classified elsewhere Refilled tamsulosin 0.4 mg PO DAILY 90 days 90 caps 1RF E29.1 - Testicular hypofunction Patient Instructions: Imaging studies, laboratory and physical exam results were discussed and reviewed in detail. No major barriers to patient understanding were identified. An opportunity to ask questions regarding the treatment plan was provided. All questions were answered. The patient expressed understanding and agreement with the above treatment plan. The patient is aware they should contact our office by phone for worsening of their current condition or the appearance of new urologic symptoms. Compliance is encouraged with any medications and followup testing that is ordered. It is a privilege to participate in the urologic care of your patient. If you have any questions or concerns regarding treatment for the above conditions, or other urologic issues, please do not hesitate to contact me. The office telephone contact is [phone]. This note is constructed using voice recognition software. While every effort has been made to ensure accuracy industrial relations officer errors may have been included. Yours sincerely, Dr Nikolas Alfaro MD, [facility] - Urology Providers of Expert, Compassionate Care for the Genitourinary System Coding Level of Care Code Est Pt Level 4 (37707) Diagnoses Erectile dysfunction associated with type 2 diabetes mellitus E11.69; N52.1 Hypogonadism in male E29.1 BPH loc w urin obs/LUTS N40.1
== END 2024-05-17 16:26 | disposition home or self-care (01) ==
PROVIDERS: Visit Provider Urology
DX: E11.69 Type 2 diabetes mellitus with other specified complication (principal); N52.1 Erectile dysfunction due to diseases classified elsewhere; E29.1 Testicular hypofunction; N40.1 Benign prostatic hyperplasia with lower urinary tract symptoms
CPT/HCPCS: 99214

== ENCOUNTER → 2024-05-17 15:31 | Outpatient (BNVA) | payer OTHER, SELFPAY | PROVIDERS: Visit Provider Urology ==

== ENCOUNTER 2024-05-18 08:34 | Outpatient (REF) | payer OTHER, SELFPAY ==
[2024-05-23 21:58] LABS: Testosterone, Free 71.3 pg/mL (35.0-155.0); Testosterone, Total 379 ng/dL (250-1100)
== END 2024-05-18 08:35 | disposition home or self-care (01) ==
LOC: HO.LAB 08:34
PROVIDERS: PCP Internal Medicine; Visit Provider Urology
DX: R68.82 Decreased libido (principal); E29.1 Testicular hypofunction
CPT/HCPCS: 36415; 84402; 84403

== ENCOUNTER 2024-07-02 08:19 | Outpatient (REF) | payer OTHER, SELFPAY ==
[2024-07-02 09:16] LABS: Estimated Average Glucose 183 mg/dL
[2024-07-02 09:38] LABS: Alanine Aminotransferase 25 U/L (0-40); Albumin Level 4.7 g/dL (3.5-5.0); Alkaline Phosphatase 101 U/L (39-117); Anion Gap 15 (12-20); Aspartate Amino Transferase 20 U/L (5-37); Bilirubin Total 0.5 mg/dL (0.0-1.0); Blood Urea Nitrogen 13 mg/dL (9-16); Calcium 11.1 mg/dL (8.4-10.2); Carbon Dioxide 29 mmol/L (22-29); Chloride 103 mmol/L (96-108); Cholesterol 132 mg/dL (<200); Estimated Glomerular Filt Rate > 60; Glucose Random 180 mg/dL (60-115); HDL Cholesterol 38 mg/dL (>40); LDL Cholesterol Calculated 47 mg/dL (<100); Potassium 4.2 mmol/L (3.3-5.1); Sodium 143 mmol/L (135-145); Total Protein 8.1 g/dL (6.5-8.0); Triglycerides 239 mg/dL (<150)
[2024-07-02 09:42] LABS: Creatinine Urine 72.92 mg/dL; Microalbum/Creatinine Ratio Ur 47.9 ug/mg cr (<30)
== END 2024-07-02 08:20 | disposition home or self-care (01) ==
LOC: HO.LAB 08:19
PROVIDERS: PCP Internal Medicine; Visit Provider Internal Medicine
DX: Z00.01 Encounter for general adult medical examination with abnormal findings (principal); E11.65 Type 2 diabetes mellitus with hyperglycemia; E78.00 Pure hypercholesterolemia, unspecified; I10 Essential (primary) hypertension; R80.9 Proteinuria, unspecified; Z63.4 Disappearance and death of family member
CPT/HCPCS: 36415; 80053; 80061; 82043; 82570; 83036

== ENCOUNTER 2024-08-03 09:30 | Outpatient (AMB) | payer OTHER, SELFPAY ==
--- NOTE | 2024-08-03 09:41 | A.OFFVIS_ITS ---
Intake Visit Reasons: testopel insertion Intake Note: Patient is present for TESTOPEL INSERTION Urology Med: Tadalafil Antibiotic Allergy: None Blood Thinner: Aspirin Globe Cleaner Required: No Allergies No Known Allergies [No Known Allergies*] Allergy (Verified 08/03/24 09:43) Medication List - Last Reconciled 08/03/24 by Nikolas Alfaro MD aspirin 81 mg PO DAILY benzonatate 100 mg PO TID PRN clotrimazole-betamethasone 1-0.05 % 1 appl topical BID empagliflozin (Jardiance) 25 mg PO QAM hydrochlorothiazide 25 mg PO DAILY loratadine 10 mg PO DAILY losartan 100 mg PO DAILY pravastatin 40 mg PO DAILY rosuvastatin 20 mg PO BEDTIME sertraline 50 mg PO DAILY sitagliptin phos-metformin 50-1,000 mg (Janumet) 1 tab PO BID tadalafil 10 mg PO DAILY 90 days HPI Comments Details: Dequan is [place] male. He is a patient of Dr. Lyle. Seen for the following urologic conditions - renal cyst - hypogonadism - lower urinary tract symptoms - erectile dysfunction diabetic Here for Testopel insertion 6 placed right hip Twelve week follow-up Lab work at week 2 and week 10 Struggling with diabetic control Low testosterone Previously used testosterone gel and injections. Struggled to obtain stable testosterone using both modalities. Lower urinary tract symptoms Hesistancy Current medication includes tamsulosin through PCP This is been effective Hypogonadism Prior evaluation Prior use of testosterone Laboratories - 08/19 281, 01/21 T 354 P 0.2 Erectile dysfunction Progressive Comorbidity with diabetes multi therapy with dyslipidemia Able to obtain but cannot maintain erection Good response to daily Cialis 5 mg PFSH Medical History BPH w/o urinary obs/LUTS Diabetes mellitus, type II Elevated blood pressure reading HTN (hypertension) Hypogonadism in male Surgical History History of colonoscopy History of lithotripsy History of surgery Social History Alcohol intake: never Review of Systems Const Denies chills and Denies fever(s) Card Reports no additional complaints and Denies syncope Resp Denies cough GI Denies abdominal pain and Denies heartburn Reports as per HPI and Denies change in libido Neuro Denies syncope Psych Denies change in libido Endo Denies change in libido Physical Exam Const General: cooperative, healthy appearing, comfortable and no acute distress Orientation/consciousness: patient oriented x3 HEENT Face and sinus: Yes normal facial exam Mouth: moist mucous membranes Neck Neck: Yes normal visual inspection, Yes full ROM and Yes trachea midline Chest Chest palpation & inspection: normal inspection of the chest Resp Effort & Inspection: normal respiratory effort, able to speak in complete sentences and no respiratory distress GI Inspection: Yes normal to inspection Back/Spine/Pelvis Cervical Spine: normal cervical lordosis Thoracic/Lumbar Spine: thoracic and lumbar spine normal to inspection Skin General skin exam: no rashes or lesions noted Neuro General: patient oriented x3, gait normal, tone normal and moves all extremities Extrem General: Yes normal to inspection and Yes capillary refill normal Office Procedures Office Procedure Office Procedure Documentation Office Procedure Documentation: CPT 98294 Subcutaneous hormone pellet implantation (implantation of testosterone pellets beneath the skin) [facility] - [id number] 6 pellets 75mg Patient in lateral jackknife - right side up The implantation area is the upper outer quadrant of the hip Cleanse the area with Betadine? swabs Place fenestrated drape over the patient, revealing the implantation area. Ra anticipated trocar tract Create a skin wheal for scalpel insertion with local anesthetic Inject local anesthetic (lidocaine HCl 2%) to begin hydrodissection in subcutaneous fat layer. Complete hydrodissection of subcutaneous fat layer, and be sure to numb entire length of trocar tract Insert the scalpel straight down and to the plastic tip Insert trocar with sharp-ended stylet. Enter downward at a 45? angle and into the subcutaneous fat layer, flatten out the trocar, stopping to leave only the trocar well exposed. Forceps used to load pellets. Blunt stylet used to advance pellets in a V pattern with 5 pellets in each load. Once completed area cleansed with alcohol wipes Incision sealed using Steri-Strips? for closure. Area covered with a 2 x2 gauze, folded in half and secured by Tegaderm? Office Meds Testopel 75 mg implant pellet Performing Provider: Nikolas Alfaro MD [facility] [place] [facility] Administered by: Nikolas Alfaro MD on 08/03/24 10:32 Dose Route Admin Location Dispensed Lot Number Expiration Date [facility] Cobol Developer 75 mg implant 6 ea [id number] Results AMB Urinalysis, Automated UA Leukoctes 0 Morris/uL Last Edit by DANIEL Elizabeth on 08/03/24 10:12 UA Nitrite Negative Last Edit by DANIEL Elizabeth on 08/03/24 10:12 UA Urobilinogen 0.2 mg/dL Last Edit by DANIEL Elizabeth on 08/03/24 10:1 2 UA Protein 0 mg/dL Last Edit by DANIEL Elizabeth on 08/03/24 10:12 UA pH 6.5 Last Edit by DANIEL Elizabeth on 08/03/24 10:12 UA Blood 10 Obie/uL Last Edit by DANIEL Elizabeth on 08/03/24 10:12 UA Specific [place] 1.010 Last Edit by DANIEL Elizabeth on 08/03/24 10: 12 UA Ketone Negative Last Edit by DANIEL Elizabeth on 08/03/24 10:12 UA Bilirubin 0 mg/dL Last Edit by DANIEL Elizabeth on 08/03/24 10:12 UA Glucose 1000 mg/dL Last Edit by DANIEL Elizabeth on 08/03/24 10:12 Results Reviewed Results Reviewed: Laboratory Last Values Urine pH (Auto) 6.5 08/03/24 10:12 Specific [place] (Auto) 1.010 08/03/24 10:12 Urine Protein (Auto) 0 mg/dL 08/03/24 10:12 Glucose (UA)(Auto) 1000 mg/dL 08/03/24 10:12 Urine Ketones (Auto) Negative 08/03/24 10:12 Urine Blood (Auto) 10 Obie/uL 08/03/24 10:12 Urine Nitrite (Auto) Negative 08/03/24 10:12 Urine Bilirubin (Auto) 0 mg/dL 08/03/24 10:12 Urine Urobilinogen (Auto) 0.2 mg/dL 08/03/24 10:12 Leukocyte Esterase (Auto) 0 Morris/uL 08/03/24 10:12 Assessment & Plan Assessment & Plan (1) Hypogonadism in male: Code(s): E29.1 - Testicular hypofunction Category: Medical Plan Follow-up Orders: Orders Testosterone, Total 2 Weeks E29.1 - Testicular hypofunction AMB Urinalysis Automated Today Z13.9 - Encounter for screening, unspecified Testosterone, Total 10 Weeks E29.1 - Testicular hypofunction AMB Testosterone Pellet Implant Today E29.1 - Testicular hypofunction Medications: New Testopel (testosterone) 75 mg implant ONCE 1 ea 0RF NS E29.1 - Testicular hypofunction Patient Instructions: Imaging studies, laboratory and physical exam results were discussed and reviewed in detail. No major barriers to patient understanding were identified. An opportunity to ask questions regarding the treatment plan was provided. All questions were answered. The patient expressed understanding and agreement with the above treatment plan. The patient is aware they should contact our office by phone for worsening of their current condition or the appearance of new urologic symptoms. Compliance is encouraged with any medications and followup testing that is ordered. It is a privilege to participate in the urologic care of your patient. If you have any questions or concerns regarding treatment for the above conditions, or other urologic issues, please do not hesitate to contact me. The office telephone contact is [phone]. This note is constructed using voice recognition software. While every effort has been made to ensure accuracy casino manager errors may have been included. Yours sincerely, Dr Nikolas Alfaro MD, [facility] - Urology Providers of Expert, Compassionate Care for the Genitourinary System Coding Level of Care Code Procedure Only Diagnoses Hypogonadism in male E29.1
== END 2024-08-03 10:37 | disposition home or self-care (01) ==
PROVIDERS: PCP Internal Medicine; Visit Provider Urology
DX: Z13.9 Encounter for screening, unspecified (principal); E29.1 Testicular hypofunction
CPT/HCPCS: 11980

== ENCOUNTER → 2024-08-03 09:30 | Outpatient (BNVA) | payer OTHER, SELFPAY | PROVIDERS: PCP Internal Medicine; Visit Provider Urology | DX: E29.1 Testicular hypofunction (principal) | CPT/HCPCS: 11980; 81003; J3490 ==

== ENCOUNTER 2024-10-21 08:28 | Outpatient (REF) | payer OTHER, SELFPAY ==
[2024-10-21 09:35] LABS: Estimated Average Glucose 177 mg/dL; Hemoglobin A1C 268.4432 umol/L; Hemoglobin A1c % 7.8 % (<6.0); Total Hemoglobin (HGBA1C) 4378.5364 umol/L
[2024-10-21 10:27] LABS: Alanine Aminotransferase 28 U/L (0-40); Albumin Level 4.5 g/dL (3.5-5.0); Alkaline Phosphatase 91 U/L (39-117); Anion Gap 13 (12-20); Aspartate Amino Transferase 25 U/L (5-37); Bilirubin Total 0.5 mg/dL (0.0-1.0); Blood Urea Nitrogen 10 mg/dL (9-16); Calcium 10.2 mg/dL (8.4-10.2); Carbon Dioxide 28 mmol/L (22-29); Chloride 106 mmol/L (96-108); Estimated Glomerular Filt Rate > 60; Glucose Random 140 mg/dL (60-115); Potassium 4.7 mmol/L (3.3-5.1); Sodium 142 mmol/L (135-145); Total Protein 7.9 g/dL (6.5-8.0)
== END 2024-10-21 08:29 | disposition home or self-care (01) ==
LOC: HO.LAB 08:28
PROVIDERS: PCP Internal Medicine; Referring Provider Internal Medicine; Visit Provider Urology
DX: E11.65 Type 2 diabetes mellitus with hyperglycemia (principal); E78.2 Mixed hyperlipidemia; I10 Essential (primary) hypertension; R80.8 Other proteinuria
CPT/HCPCS: 36415; 80053; 83036

== ENCOUNTER 2024-11-03 08:29 | Outpatient (REF) | payer OTHER, SELFPAY ==
[2024-11-07 15:18] LABS: Testosterone, Total 428 ng/dL (250-1100)
== END 2024-11-03 08:30 | disposition home or self-care (01) ==
LOC: HO.LAB 08:29
PROVIDERS: PCP Internal Medicine; Visit Provider Urology
DX: E29.1 Testicular hypofunction (principal)
CPT/HCPCS: 36415; 84403

== ENCOUNTER 2024-11-08 12:31 | Outpatient (AMB) | payer OTHER, SELFPAY ==
--- NOTE | 2024-11-08 12:45 | A.OFFVIS_ITS ---
Intake Visit Reasons: Testopel Insertion/Testosterone(pending) Intake Note: Patient is present for testopel insertion/testosterone Urology Medication:tadalafil Antibiotic Allergy:none Blood Thinner:aspirin Manufacturing Systems Engineer Required: No Allergies No Known Allergies [No Known Allergies*] Allergy (Verified 08/03/24 09:43) HPI Comments Details: Dequ[place] male. He is a patient of Dr. Lyle. Seen for the following urologic conditions - renal cyst - hypogonadism - lower urinary tract symptoms - erectile dysfunction diabetic Here for Testopel insertion 6 placed right hip Twelve week follow-up Lab work at week 2 and week 10 Struggling with diabetic control Low testosterone Previously used testosterone gel and injections. Struggled to obtain stable testosterone using both modalities. Lower urinary tract symptoms Hesistancy Current medication includes tamsulosin through PCP This is been effective Hypogonadism Prior evaluation Prior use of testosterone Laboratories - 08/19 281, 01/21 T 354 P 0.2, 11/26 430 Testopel Placement - 08/25 Erectile dysfunction Progressive Comorbidity with diabetes multi therapy with dyslipidemia Able to obtain but cannot maintain erection Good response to daily Cialis 5 mg PFSH Medical History BPH w/o urinary obs/LUTS Diabetes mellitus, type II Elevated blood pressure reading HTN (hypertension) Hypogonadism in male Surgical History History of colonoscopy History of lithotripsy History of surgery Social History Alcohol intake: never Results AMB Urinalysis, Automated UA Leukoctes 0 Morris/uL Last Edit by DANIEL Elizabeth on 11/08/24 13:25 UA Nitrite Negative Last Edit by DANIEL Elizabeth on 11/08/24 13:25 UA Urobilinogen 0.2 mg/dL Last Edit by DANIEL Elizabeth on 11/08/24 13:2 5 UA Protein 15 mg/dL Last Edit by DANIEL Elizabeth on 11/08/24 13:25 UA pH 6.0 Last Edit by DANIEL Elizabeth on 11/08/24 13:25 UA Blood 10 Obie/uL Last Edit by DANIEL Elizabeth on 11/08/24 13:25 UA Specific [place] 1.020 Last Edit by DANIEL Elizabeth on 11/08/24 13: 25 UA Ketone Negative Last Edit by DANIEL Elizabeth on 11/08/24 13:25 UA Bilirubin 0 mg/dL Last Edit by DANIEL Elizabeth on 11/08/24 13:25 UA Glucose 1000 mg/dL Last Edit by DANIEL Elizabeth on 11/08/24 13:25 Results Reviewed Results Reviewed: Laboratory Last Values Urine pH (Auto) 6.0 11/08/24 13:24 Specific [place] (Auto) 1.020 11/08/24 13:24 Urine Protein (Auto) 15 mg/dL 11/08/24 13:24 Glucose (UA)(Auto) 1000 mg/dL 11/08/24 13:24 Urine Ketones (Auto) Negative 11/08/24 13:24 Urine Blood (Auto) 10 Obie/uL 11/08/24 13:24 Urine Nitrite (Auto) Negative 11/08/24 13:24 Urine Bilirubin (Auto) 0 mg/dL 11/08/24 13:24 Urine Urobilinogen (Auto) 0.2 mg/dL 11/08/24 13:24 Leukocyte Esterase (Auto) 0 Morris/uL 11/08/24 13:24 Assessment & Plan Assessment & Plan Orders: Orders Testosterone, Total 2 Weeks E29.1 - Testicular hypofunction Testosterone, Total 10 Weeks E29.1 - Testicular hypofunction AMB Urinalysis Automated Today Z13.9 - Encounter for screening, unspecified Medications: New testosterone (Testopel) 450 mg subcut ONCE 12 weeks 6 ea 0RF Coding
== END 2024-11-08 14:07 | disposition home or self-care (01) ==
PROVIDERS: PCP Internal Medicine; Visit Provider Urology
DX: Z13.9 Encounter for screening, unspecified (principal)

== ENCOUNTER → 2024-11-08 12:31 | Outpatient (BNVA) | payer OTHER, SELFPAY | PROVIDERS: PCP Internal Medicine; Visit Provider Urology | DX: E29.1 Testicular hypofunction (principal); N40.1 Benign prostatic hyperplasia with lower urinary tract symptoms; N13.8 Other obstructive and reflux uropathy; E11.69 Type 2 diabetes mellitus with other specified complication; N52.1 Erectile dysfunction due to diseases classified elsewhere | CPT/HCPCS: 11980; 81003; J3490 ==

== ENCOUNTER 2024-12-06 07:29 | Outpatient (REF) | payer OTHER, SELFPAY ==
[2024-12-11 12:03] LABS: Testosterone, Total 630 ng/dL (250-1100)
== END 2024-12-06 07:30 | disposition home or self-care (01) ==
LOC: HO.LAB 07:29
PROVIDERS: PCP Internal Medicine; Visit Provider Urology
DX: E29.1 Testicular hypofunction (principal)
CPT/HCPCS: 36415; 84403

== ENCOUNTER 2025-02-03 07:47 | Outpatient (REF) | payer OTHER, SELFPAY ==
[2025-02-09 16:44] LABS: Testosterone, Total 343 ng/dL (250-1100)
== END 2025-02-03 07:48 | disposition home or self-care (01) ==
LOC: HO.LAB 07:47
PROVIDERS: PCP Internal Medicine; Visit Provider Urology
DX: E29.1 Testicular hypofunction (principal)
CPT/HCPCS: 36415; 84403

== ENCOUNTER 2025-02-07 14:55 | Outpatient (AMB) | payer OTHER, SELFPAY ==
--- NOTE | 2025-02-07 15:06 | MHC.OFFVIS ---
Intake Visit Reasons: 12 weeks follow up testopel Intake Note: Patient is present for 12W F/U TESTOPEL Urology Medication:TADALAFIL,TESTOSTERONE Antibiotic Allergy:NONE Blood Thinner:ASPIRIN Surgical Device Sales Representative Required: No Allergies No Known Allergies [No Known Allergies*] Allergy (Verified 02/07/25 15:08) HPI Comments Details: Dequan is a [place] male. He is a patient of Dr. Lyle. Seen for the following urologic conditions - renal cyst - hypogonadism - lower urinary tract symptoms - erectile dysfunction diabetic Here for Testopel insertion 6 placed right hip Continue three-month follow-up Good peak response T response 1st 430 2nd 630 343 3rd Previously used testosterone gel and injections. Struggled to obtain stable testosterone using both modalities. Mild bruising at 2nd testopel site insertion incision Lower urinary tract symptoms Hesistancy Current medication includes tamsulosin through PCP This is been effective Hypogonadism Prior evaluation Prior use of testosterone Laboratories - 08/19 281, 01/21 T 354 P 0.2, 11/26 430 Testopel Placement - 08/25, 11/26, 02/24 Erectile dysfunction Progressive Comorbidity with diabetes multi therapy with dyslipidemia Able to obtain but cannot maintain erection Good response to daily Cialis 5 mg Testopel Placement Pre Op Diagnosis - Low testosterone Post Op Diagnosis - Low Testosterone Procedure: Testopel Insertion Testopel was prepared for insertion. Six Testopel pellets were removed from the individual glass containers and placed in a sterile container. The patient was placed in left lateral position with left side down and right side up. The area over the right hip was cleaned with Betadine. Lidocaine 2% was injected first as a skin wheal and then into the subcutaneous tissue directed in a fashion down towards the femur in the subcutaneous space to perform hydrodissection. The purpose of the injection is to numb the length of the trocar track. A 15 Blade scapel was used to make a puncture incision into the subcutaneous space. Trocar with sharp-ended stylet inserted through stab incision at a 45? angle and into the subcutaneous fat layer. The needle was flatten out and advanced leaving the pellet loading area exposed. 6 pellets were inserted using Adson forceps into the loading trocar. The blunt stylet was used to advance pellets into the tract while withdrawing the trocar. The trocar insertion site was closed with multiple steristrips and a dressing placed. CPT 10257 J3490 [facility] Medical History BPH w/o urinary obs/LUTS Diabetes mellitus, type II Elevated blood pressure reading HTN (hypertension) Hypogonadism in male Surgical History History of colonoscopy History of lithotripsy History of surgery Social History Alcohol intake: never Review of Systems Const Denies chills and Denies fever(s) Card Reports no additional complaints and Denies syncope Resp Denies cough GI Denies abdominal pain and Denies heartburn Reports as per HPI and Denies change in libido Neuro Denies syncope Psych Denies change in libido Endo Denies change in libido Physical Exam Const General: cooperative, healthy appearing, comfortable and no acute distress Orientation/consciousness: patient oriented x3 HEENT Face and sinus: Yes normal facial exam Mouth: moist mucous membranes Neck Neck: Yes normal visual inspection, Yes full ROM and Yes trachea midline Chest Chest palpation & inspection: normal inspection of the chest Resp Effort & Inspection: normal respiratory effort, able to speak in complete sentences and no respiratory distress GI Inspection: Yes normal to inspection Back/Spine/Pelvis Cervical Spine: normal cervical lordosis Thoracic/Lumbar Spine: thoracic and lumbar spine normal to inspection Skin General skin exam: no rashes or lesions noted Neuro General: patient oriented x3, gait normal, tone normal and moves all extremities Extrem General: Yes normal to inspection and Yes capillary refill normal Assessment & Plan Assessment & Plan (1) Erectile dysfunction associated with type 2 diabetes mellitus: Code(s): E11.69 - Type 2 diabetes mellitus with other specified complication; N52.1 - Erectile dysfunction due to diseases classified elsewhere Category: Medical (2) BPH loc w urin obs/LUTS: Code(s): N40.1 - Benign prostatic hyperplasia with lower urinary tract symptoms Category: Medical (3) Hypogonadism in male: Code(s): E29.1 - Testicular hypofunction Category: Medical Plan Three-month follow-up repeat procedure Check peak Orders: Orders Testosterone, Total 2 Weeks E29.1 - Testicular hypofunction Patient Instructions: This note is constructed using voice recognition software. While every effort has been made to ensure accuracy drafter seismograph errors may have been included. Imaging studies, laboratory and physical exam results were discussed and reviewed in detail. No major barriers to patient understanding were identified. An opportunity to ask questions regarding the treatment plan was provided. All questions were answered. The patient expressed understanding and agreement with the above treatment plan. The patient is aware they should contact our office by phone for worsening of their current condition or the appearance of new urologic symptoms. Compliance is encouraged with any medications and followup testing that is ordered. It is a privilege to participate in the urologic care of your patient. If you have any questions or concerns regarding treatment for the above conditions, or other urologic issues, please do not hesitate to contact me. The office telephone contact is [phone]. Sincerely, Dr Nikolas Alfaro MD, [facility] - Urology Compassionate Specialist Care for the Genitourinary System Coding Level of Care Code Est Pt Level 3 (44919) Diagnoses Erectile dysfunction associated with type 2 diabetes mellitus E11.69; N52.1 BPH loc w urin obs/LUTS N40.1 Hypogonadism in male E29.1 Comment Add CPT 75795
== END 2025-02-07 15:48 | disposition home or self-care (01) ==
LOC: HO.HUSH 14:55
PROVIDERS: PCP Internal Medicine; Visit Provider Urology
DX: E11.69 Type 2 diabetes mellitus with other specified complication (principal); N52.1 Erectile dysfunction due to diseases classified elsewhere; N40.1 Benign prostatic hyperplasia with lower urinary tract symptoms; E29.1 Testicular hypofunction
CPT/HCPCS: 99213

== ENCOUNTER → 2025-02-07 14:55 | Outpatient (BNVA) | payer OTHER, SELFPAY | PROVIDERS: PCP Internal Medicine; Visit Provider Urology | DX: N40.1 Benign prostatic hyperplasia with lower urinary tract symptoms (principal); N52.1 Erectile dysfunction due to diseases classified elsewhere; E29.1 Testicular hypofunction; E11.69 Type 2 diabetes mellitus with other specified complication | CPT/HCPCS: 11980; J3490 ==

== ENCOUNTER 2025-02-17 07:59 | Outpatient (REF) | payer OTHER, SELFPAY ==
[2025-02-17 08:18] LABS: MANUAL DIFF FLAG NO
[2025-02-17 08:27] LABS: Basophils Percent Auto 0.4 % (0-2); Eosinophils Absolute Auto 0.1 X10*3/uL (0.0-0.4); Eosinophils Percent Auto 1.6 % (0-4); Hematocrit 53.3 % (42.0-52.0); Hemoglobin 17.5 g/dl (14.0-18.0); Imm Gran Abs Auto 0.01 X10*3/uL (0.00-0.03); Imm Gran Pct Auto 0.1 % (0.0-0.4); Lymphocytes Absolute Auto 1.3 X10*3/uL (1.2-4.9); Lymphocytes Percent Auto 19.5 % (20-40); Mean Corpuscular HGB Conc 32.8 g/dl (31.0-36.0); Mean Corpuscular Hemoglobin 29.2 pg (27.0-33.0); Mean Platelet Volume 9.3 fL (9.4-12.4); Monocytes Absolute Auto 0.5 X10*3/uL (0.1-1.2); Monocytes Percent Auto 7.3 % (2-11); Neutrophils Absolute Auto 4.8 x10*3/uL (2.0-8.3); Neutrophils Percent Auto 71.1 % (45-73); Platelet Count 235 X10*3/uL (160-400); Red Blood Count 5.99 X10*6/uL (4.60-5.80); Red Cell Distribution Width 13.4 % (11.0-16.0); White Blood Count 6.7 X10*3/uL (4.8-10.8)
[2025-02-17 08:30] LABS: Estimated Average Glucose 197 mg/dL; Hemoglobin A1C 294.6029 umol/L; Hemoglobin A1c % 8.5 % (<6.0); Total Hemoglobin (HGBA1C) 4260.8385 umol/L
[2025-02-17 09:04] LABS: Alanine Aminotransferase 23 U/L (0-40); Albumin Level 4.4 g/dL (3.5-5.0); Anion Gap 12 (12-20); Aspartate Amino Transferase 26 U/L (5-37); Bilirubin Total 0.5 mg/dL (0.0-1.0); Blood Urea Nitrogen 11 mg/dL (9-16); Calcium 10.3 mg/dL (8.4-10.2); Carbon Dioxide 28 mmol/L (22-29); Chloride 104 mmol/L (96-108); Cholesterol 149 mg/dL (<200); Estimated Glomerular Filt Rate > 60; Glucose Random 175 mg/dL (60-115); HDL Cholesterol 39 mg/dL (>40); LDL Cholesterol Calculated 71 mg/dL (<100); Sodium 140 mmol/L (135-145); Total Protein 7.6 g/dL (6.5-8.0); Triglycerides 199 mg/dL (<150)
[2025-02-17 09:09] LABS: Alkaline Phosphatase 95 U/L (39-117)
[2025-02-17 09:26] LABS: Folate 10.1 ng/mL (> or = 4.0); Prostate Specific Antigen Scr 0.44 ng/mL (<0.05-4.0); Vitamin B12 1133 pg/mL (200-900)
[2025-02-17 09:52] LABS: Creatinine Urine 53.43 mg/dL; Microalbum/Creatinine Ratio Ur 29.9 ug/mg cr (<30)
== END 2025-02-17 08:00 | disposition home or self-care (01) ==
LOC: HO.LAB 07:59
PROVIDERS: PCP Internal Medicine; Visit Provider Internal Medicine
DX: E11.40 Type 2 diabetes mellitus with diabetic neuropathy, unspecified (principal); E11.65 Type 2 diabetes mellitus with hyperglycemia; E78.2 Mixed hyperlipidemia; I10 Essential (primary) hypertension; N40.0 Benign prostatic hyperplasia without lower urinary tract symptoms; Z12.5 Encounter for screening for malignant neoplasm of prostate
CPT/HCPCS: 36415; 80053; 80061; 82043; 82570; 82607; 82746; 83036; 84153; 85025

== ENCOUNTER 2025-03-06 07:26 | Outpatient (REF) | payer OTHER, SELFPAY ==
[2025-03-09 17:14] LABS: Testosterone, Total 663 ng/dL (250-1100)
== END 2025-03-06 07:27 | disposition home or self-care (01) ==
LOC: HO.LAB 07:26
PROVIDERS: Visit Provider Urology
DX: E29.1 Testicular hypofunction (principal)
CPT/HCPCS: 36415; 84403

== ENCOUNTER 2025-04-24 10:07 | Day surgery (SDC) | payer OTHER, SELFPAY ==
[2025-04-24] VITALS (12 sets, daily range): BP systolic 101–145; BP diastolic 77–98; PULSE 65–96; RESP 16; TEMP 36.2–36.6; O2SAT 91–98; BMI 26.9
--- NOTE | 2025-04-24 10:35 | HO.ANESPROP2 ---
HPI - Anesthesia Eval Anesthesia Pre-Procedure Meds If yes to any meds - educate patient: Pt education - increased risk of aspiration and/or euvolemic DKA PMFSH Active Problems Active Problems: All Active Problems COVID-19 (Acute) Erectile dysfunction associated with type 2 diabetes mellitus (Acute) Complex renal cyst (Acute) Hypogonadism in male (Acute) BPH loc w urin obs/LUTS (Acute) Past Medical History Medical History HTN (hypertension) Diabetes mellitus, type II Hypogonadism in male Elevated blood pressure reading BPH w/o urinary obs/LUTS Functional capacity: independent ambulation Family History Family history of problems with anesthesia: No Surgical History Surgical History History of colonoscopy History of lithotripsy History of surgery History of Problems with Anesthesia: No Social History Social History Alcohol intake: never Patient Tobacco Use Status: Never used Tobacco Second Hand Smoke Exposure: No Use of substances other than those prescribed or required for medical reasons: No Have you been hit, kicked, punched, or otherwise hurt by someone within the past year? If so, by whom?: No Are you DNR?: No Advance Directives: No Advance Directives Information Provided: Yes Advance Directives on File: No Poor oral hygiene: No Meds Allergies Allergy/AdvReac Type Severity Reaction Status Date / Time No Known Allergies (No Known Allergy Verified 02/07/25 15:08 Allergies*) Active Medications: Current Medications Cefazolin Sodium/Dextrose (Ancef) 2 gm in 50 mls @ 100 mls/hr IV PREOP ONE Stop: 04/24/25 10:40 Home Medications ?Medication ?Instructions ?Recorded ?Confirmed ?Last Taken ?Type empagliflozin 25 mg tablet 25 mg PO QAM 01/23/22 08/03/24 Unknown History (Jardiance) hydrochlorothiazide 25 mg tablet 25 mg PO DAILY 01/23/22 08/03/24 Unknown History loratadine 10 mg tablet 10 mg PO DAILY 01/23/22 08/03/24 Unknown History losartan 100 mg tablet 100 mg PO DAILY 01/23/22 08/03/24 Unknown History rosuvastatin 20 mg tablet 20 mg PO BEDTIME 01/23/22 08/03/24 Unknown History sitagliptin phosphate 50 1 tab PO BID 01/23/22 08/03/24 Unknown History mg-metformin 1,000 mg tablet () pravastatin 40 mg tablet 40 mg PO DAILY 02/27/22 08/03/24 Unknown History aspirin 81 mg tablet,delayed 81 mg PO DAILY 08/21/22 08/03/24 Unknown History release sertraline 50 mg tablet 50 mg PO DAILY 08/21/22 08/03/24 Unknown History Exam Exam Date and Time: 04/24/2025 Height,Weight and Vital Signs: Height 5 ft 6 in Weight 75.7 kg Last Vital Signs Temp 97.1 F 04/24/25 10:27 Pulse 68 04/24/25 10:27 Resp 16 04/24/25 10:27 BP 141/91 H 04/24/25 10:27 Pulse Ox 97 04/24/25 10:27 O2 Del Method Room Air 04/24/25 10:27 Airway Mallampati Class: II TM Dist: >3cm Neck ROM: Full Loose/Missing/Broken Teeth: No Heart: rrr Lungs: cta Other: normal cognition Assessment and Plan Assessment Anesthesia Assessment: Anesthesia Plan Discussed, Smoking Cess. Discussed and Chart Reviewed Final Anesthetic Review Family History of Problems with Anesthesia: No History of Problems with Anesthesia: No NPO: Yes ASA Class: II Final Preanesthetic Review: No Changes in Pt Med Stat, Meds/Allgs Chart Reviewed, Consent Obtained/Reviewed and Anes Risks/Benef Reviewed Patient Risk: Low Procedure Risk: Low Anesthetic Plan Anesthetic Plan: GA Disposition: Standard PACU
[2025-04-24 10:44] LABS: Glucose, Whole Blood 180 mg/dL (60-115)
[2025-04-24] MEDS: Lactated Ringers 1,000 ML 80 ML IVCONT (10:47)
--- NOTE | 2025-04-24 12:09 | MHC.SHP ---
Pre-Procedural Eval Section A - 24 Hr Update-Section A only Date of Service: 04/24/25 The patient is an INPATIENT: No Changes since office visit: No Cold of Flu in the past 2 weeks, No New Medical Problems, No Changes in Medication and No Patient answered all questions The patient has been examined within 24 hours of the surgical procedure. The History & Physical has been completed within 30 days and I have reviewed it.: Yes Section B - Complete if H&P > 30 days Chief Complaint: Balanitis Details of Present Illness: circumcision Allergies: Allergies Allergy/AdvReac Type Severity Reaction Status Date / Time No Known Allergies (No Known Allergy Verified 02/07/25 15:08 Allergies*) Review of Systems Sugical H&P ROS: Negative: Constitution, Cardiovascular, Respiratory, Neurological, Psychiatric, Hem-Onc, Allergic/Immunologic, Gastrointestinal, Genitourinary, Musculoskeletal, Integumentary, Endocrine and Eyes/Ears/Nose/Throat Exam Surgical H&P Exam: Normal: HEENT, Normal: Heart, Normal: Lungs, Normal: Extremities, Normal: Abdomen, Normal: Skin and Normal: Neurological Plan Diagnosis/Plan: Unchanged (circumcision) I have reviewed the history and physical and performed a pertinent physical examination on my patient. No changes have occurred unless specified. Time Spent With Patient Time: Total time managing care of this patient today ____ minutes.
[2025-04-24] MEDS: ceFAZolin Sodium/Dextrose,Iso 2 GM/50 ML PIGGYBACK IV (12:26)
--- NOTE | 2025-04-24 13:06 | P.OP_ITS ---
Operative Note Operative Note Date of Service: 04/24/25 Narrative: PreOperative Diagnosis: Balanitis and phimosis Post Operative Diagnosis: Balanitis and phimosis Procedure: Circumcision Surgeon: Dr Nikolas Alfaro Anesthesia: General Indications for procedure: Recurring balanitis in inability to withdrawal foreskin of penile glans. Risks and benefits including bleeding, scarring, need for revision surgery been discussed. Procedure: After informed consent was verified the patient was brought to the operating room and placed in a supine position. Anesthesia was administered per protocol. The patient was prepped and draped sterile fashion. Safety pause time-out was performed. Antibiotics have been given. The penis was examined and proximal incision marked that lay just proximal to the resting position of the penile sulcus. This was followed around the circumference of the penis. A penile ring block was performed using 1% lidoca ine with no epinephrine. Approximately 8 cc. The proximal incision was developed with sharp blade running circumferentially around the penis. The skin was to give a 1 cm separation between the foreskin in the remaining penile shaft skin. The foreskin was withdrawn and the penile glans exposed. A a distal incision was made approximately 5 mm proximal to the penile sulcus. At the area of the frenulum care was taken to empty the penile frenulum intact. Using clamps the dorsal skin was elevated. Using Metzenbaum scissors the avascular plane was entered and proximal and distal incision were joined. The bridging skin was elevated and clamped. It was then divided using Bovie. The sleeve of tissue was then removed circumferentially around the penis using cautery in order to minimize bleeding. The shaft was then examined in any bleeding areas were controlled. More local anesthetic was injected into the plane beneath avascular plane to help with postprocedure pain management. The skin edges after they were appropriately examined low reapposed. A 3-0 chromic suture was placed at 12:00 o'clock and 06:00 o'clock positions. Interrupted 3-0 was then placed the 09:00 o'clock and 3 o'clock position. Each quadrant was then filled with 3 sutures using 4-0 chromic. At the completion of the procedure there was adequate hemostasis. The incision was washed and dried. Antibiotic cream was applied to the incision. A [place] wrap was applied followed by a Coban dressing. Xeroform gauze had been used to cover antibiotic ointment. He tolerated the procedure well and was extubated in the room and transferred in stable condition to the recovery area. Pathology: Foreskin Drains: none
--- NOTE | 2025-04-24 13:14 | HO.ANESPROP2 ---
[facility] Active Problems Active Problems: All Active Problems (Updated 02/26/24 @ 00:00 by Narciso Mcdaniels) COVID-19 (Acute) Erectile dysfunction associated with type 2 diabetes mellitus (Acute) Complex renal cyst (Acute) Hypogonadism in male (Acute) BPH loc w urin obs/LUTS (Acute) Past Medical History Medical History HTN (hypertension) Diabetes mellitus, type II Hypogonadism in male Elevated blood pressure reading BPH w/o urinary obs/LUTS Functional capacity: independent ambulation Family History Family history of problems with anesthesia: No Surgical History Surgical History History of colonoscopy History of lithotripsy History of surgery History of Problems with Anesthesia: No Social History Social History Alcohol intake: never Patient Tobacco Use Status: Never used Tobacco Second Hand Smoke Exposure: No Use of substances other than those prescribed or required for medical reasons: No Have you been hit, kicked, punched, or otherwise hurt by someone within the past year? If so, by whom?: No Are you DNR?: No Advance Directives: No Advance Directives Information Provided: Yes Advance Directives on File: No Poor oral hygiene: No Meds Allergies Allergy/AdvReac Type Severity Reaction Status Date / Time No Known Allergies (No Known Allergy Verified 02/07/25 15:08 Allergies*) Active Medications: Current Medications Acetaminophen (Acetaminophen 325 Mg Tablet) 650 mg PO ONCE PRN PRN Reason: Pain, Mild (Pain Scale 1-3) Stop: 04/24/25 16:41 Fentanyl (Fentanyl Citrate/Pf 100 Mcg/2 Ml Vial) 25 mcg IVPUSH Q5M PRN PRN Reason: Pain, Moderate to Severe (Pain Scale 4-10) Stop: 04/24/25 16:41 Hydromorphone HCl (Hydromorphone Hcl 0.5 Mg/0.5 Ml Syringe) 0.25 mg IVPUSH Q5M PRN PRN Reason: Pain, Moderate to Severe (Pain Scale 4-10) Stop: 04/24/25 16:41 Lactated Ringer's (Lr) 1,000 mls @ 80 mls/hr IVCONT .[id number] [facility] Last Admin: 04/24/25 10:47 Dose: 80 mls/hr Naloxone HCl (Naloxone Hcl 0.4 Mg/Ml Vial) 0.04 mg IVPUSH Q5M PRN PRN Reason: Excessive sedation or RR < 8 Ondansetron HCl (Ondansetron Hcl 4 Mg/2 Ml Vial) 4 mg IVPUSH ONCE PRN PRN Reason: Nausea and Vomiting Stop: 04/24/25 16:41 Oxycodone HCl (Oxycodone Hcl Immed Release 5 Mg Tablet) 5 mg PO ONCE PRN PRN Reason: Pain, Moderate(Pain Scale 4-6) if no IV Access Stop: 04/24/25 16:41 Oxycodone HCl (Oxycodone Hcl Immed Release 5 Mg Tablet) 5 mg PO Q4H PRN PRN Reason: Pain, Mild (Pain Scale 1-3) Home Medications ?Medication ?Instructions ?Recorded ?Confirmed ?Last Taken ?Type empagliflozin 25 mg tablet 25 mg PO QAM 01/23/22 08/03/24 Unknown History (Jardiance) hydrochlorothiazide 25 mg tablet 25 mg PO DAILY 01/23/22 08/03/24 Unknown History loratadine 10 mg tablet 10 mg PO DAILY 01/23/22 08/03/24 Unknown History losartan 100 mg tablet 100 mg PO DAILY 01/23/22 08/03/24 Unknown History rosuvastatin 20 mg tablet 20 mg PO BEDTIME 01/23/22 08/03/24 Unknown History sitagliptin phosphate 50 1 tab PO BID 01/23/22 08/03/24 Unknown History mg-metformin 1,000 mg tablet (Novleonardo) pravastatin 40 mg tablet 40 mg PO DAILY 02/27/22 08/03/24 Unknown History aspirin 81 mg tablet,delayed 81 mg PO DAILY 08/21/22 08/03/24 Unknown History release sertraline 50 mg tablet 50 mg PO DAILY 08/21/22 08/03/24 Unknown History Exam Exam Date and Time: 04/24/25 Height,Weight and Vital Signs: Height 5 ft 6 in Weight 75.7 kg Last Vital Signs Temp 97.1 F 04/24/25 10:27 Pulse 68 04/24/25 10:27 Resp 16 04/24/25 10:27 BP 141/91 H 04/24/25 10:27 Pulse Ox 97 04/24/25 10:27 O2 Del Method Room Air 04/24/25 10:27 Pertinent Lab Results Pertinent Lab Results: Laboratory Tests 04/24/25 10:40 POC Glucose 180 H Assessment and Plan Final Anesthetic Review Family History of Problems with Anesthesia: No History of Problems with Anesthesia: No
== END 2025-04-24 15:45 | disposition home or self-care (01) ==
PROVIDERS: PCP Internal Medicine; Visit Provider Urology
PROC: (CPT 54161; principal; 2025-04-24 12:10)
DX: N48.1 Balanitis (principal); N47.1 Phimosis; E11.69 Type 2 diabetes mellitus with other specified complication; N52.1 Erectile dysfunction due to diseases classified elsewhere; N40.0 Benign prostatic hyperplasia without lower urinary tract symptoms; E29.1 Testicular hypofunction; Z79.82 Long term (current) use of aspirin; Z79.899 Other long term (current) drug therapy; Z98.890 Other specified postprocedural states
CPT/HCPCS: 54161; 82947; 88304; J0690; J1171; J2003; J2405; J2704; J2795; J3010

== ENCOUNTER → 2025-04-24 10:07 | Outpatient (BNV) | payer OTHER, SELFPAY | PROVIDERS: PCP Internal Medicine; Visit Provider Urology | DX: N47.1 Phimosis (principal); N48.1 Balanitis | CPT/HCPCS: 54161 ==

== ENCOUNTER 2025-05-30 15:32 | Outpatient (AMB) | payer OTHER, SELFPAY ==
--- NOTE | 2025-05-30 15:33 | A.OFFVIS_ITS ---
Intake Visit Reasons: Circumcision follow up Intake Note: Patient is present for Post -op Circumcsion 04/24/2025 Urology Medication:TADALAFIL,TESTOSTERONE Antibiotic Allergy:NONE Blood Thinner:ASPIRIN Environmental Engineering Professor Required: No Accompanied by: Self / Same As Patient Allergies No Known Allergies (No Known Allergies*) Allergy (Verified 05/30/25 15:34) HPI Comments Details: Dequan is a [place] male. He is a patient of Dr. Lyle. Seen for the following urologic conditions - renal cyst - hypogonadism - lower urinary tract symptoms - erectile dysfunction diabetic Whilst he had good response to pellets he has had issues with pain at the insertion site Would like to go back on injectables Prescription provided Healing well from circumcision Previously used testosterone gel and injections. Struggled to obtain stable testosterone using both modalities. Lower urinary tract symptoms Hesistancy Current medication includes tamsulosin through PCP This is been effective Hypogonadism Prior evaluation Prior use of testosterone Laboratories - 08/19 281, 01/21 T 354 P 0.2, 11/26 430 Testopel Placement - 08/25, 11/26, 02/24 T response 1st 430 2nd 630 343 3rd 665 Erectile dysfunction Progressive Comorbidity with diabetes multi therapy with dyslipidemia Able to obtain but cannot maintain erection Good response to daily Cialis 5 mg Testopel Placement Pre Op Diagnosis - Low testosterone Post Op Diagnosis - Low Testosterone Procedure: Testopel Insertion Testopel was prepared for insertion. Six Testopel pellets were removed from the individual glass containers and placed in a sterile container. The patient was placed in left lateral position with left side down and right side up. The area over the right hip was cleaned with Betadine. Lidocaine 2% was injected first as a skin wheal and then into the subcutaneous tissue directed in a fashion down towards the femur in the subcutaneous space to perform hydrodissection. The purpose of the injection is to numb the length of the trocar track. A 15 Blade scapel was used to make a puncture incision into the subcutaneous space. Trocar with sharp-ended stylet inserted through stab incision at a 45? angle and into the subcutaneous fat layer. The needle was flatten out and advanced leaving the pellet loading area exposed. 6 pellets were inserted using Adson forceps into the loading trocar. The blunt stylet was used to advance pellets into the tract while withdrawing the trocar. The trocar insertion site was closed with multiple steristrips and a dressing placed. CPT 16559 J3490 [facility] Medical History HTN (hypertension) Diabetes mellitus, type II Hypogonadism in male Elevated blood pressure reading BPH w/o urinary obs/LUTS Surgical History History of colonoscopy History of lithotripsy History of surgery Social History Alcohol intake: never Patient Tobacco Use Status: Never used Tobacco Second Hand Smoke Exposure: No Review of Systems Const Denies chills and Denies fever(s) Card Reports no additional complaints and Denies syncope Resp Denies cough GI Denies abdominal pain and Denies heartburn Reports as per HPI and Denies change in libido Neuro Denies syncope Psych Denies change in libido Endo Denies change in libido Physical Exam Const General: cooperative, healthy appearing, comfortable and no acute distress Orientation/consciousness: patient oriented x3 HEENT Face and sinus: Yes normal facial exam Mouth: moist mucous membranes Neck Neck: Yes normal visual inspection, Yes full ROM and Yes trachea midline Chest Chest palpation & inspection: normal inspection of the chest Resp Effort & Inspection: normal respiratory effort, able to speak in complete sentences and no respiratory distress GI Inspection: Yes normal to inspection Back/Spine/Pelvis Cervical Spine: normal cervical lordosis Thoracic/Lumbar Spine: thoracic and lumbar spine normal to inspection Skin General skin exam: no rashes or lesions noted Neuro General: patient oriented x3, gait normal, tone normal and moves all extremities Extrem General: Yes normal to inspection and Yes capillary refill normal Assessment & Plan Assessment & Plan (1) Hypogonadism in male: Code(s): E29.1 - Testicular hypofunction Category: Medical (2) BPH loc w urin obs/LUTS: Code(s): N40.1 - Benign prostatic hyperplasia with lower urinary tract symptoms Category: Medical (3) Phimosis: Code(s): N47.1 - Phimosis Category: Medical Plan 2 month follow-up Restart testosterone Orders: Orders Testosterone, Total 2 Months E29.1 - Testicular hypofunction Medications: New testosterone cypionate (Depo-Testosterone) 80 mg (0.4 mL) subcut QWEEK 2 mL 5RF 4 weeks E29.1 - Testicular hypofunction Patient Instructions: This note is constructed using voice recognition software. While every effort has been made to ensure accuracy strategy analyst errors may have been included. Imaging studies, laboratory and physical exam results were discussed and reviewed in detail. No major barriers to patient understanding were identified. An opportunity to ask questions regarding the treatment plan was provided. All questions were answered. The patient expressed understanding and agreement with the above treatment plan. The patient is aware they should contact our office by phone for worsening of their current condition or the appearance of new urologic symptoms. Compliance is encouraged with any medications and followup testing that is ordered. It is a privilege to participate in the urologic care of your patient. If you have any questions or concerns regarding treatment for the above conditions, or other urologic issues, please do not hesitate to contact me. The office telephone contact is [phone]. Sincerely, Dr Nikolas Alfaro MD, [facility] - Urology Compassionate Specialist Care for the Genitourinary System Coding Level of Care Code Est Pt Level 4 (84673) Diagnoses Hypogonadism in male E29.1 BPH loc w urin obs/LUTS N40.1 Phimosis N47.1
== END 2025-05-30 16:07 | disposition home or self-care (01) ==
LOC: HO.HUSH 15:33
PROVIDERS: PCP Internal Medicine; Visit Provider Urology
DX: E29.1 Testicular hypofunction (principal); N40.1 Benign prostatic hyperplasia with lower urinary tract symptoms; N47.1 Phimosis
CPT/HCPCS: 99214

== ENCOUNTER 2025-08-17 08:24 | Outpatient (REF) | payer OTHER, SELFPAY ==
[2025-08-17 11:23] LABS: Alanine Aminotransferase 40 U/L (0-40); Albumin Level 4.6 g/dL (3.5-5.0); Alkaline Phosphatase 89 U/L (39-117); Anion Gap 13 (12-20); Aspartate Amino Transferase 27 U/L (5-37); Blood Urea Nitrogen 11 mg/dL (9-16); Calcium 9.9 mg/dL (8.4-10.2); Carbon Dioxide 27 mmol/L (22-29); Chloride 103 mmol/L (96-108); Estimated Glomerular Filt Rate > 60; Potassium 4.5 mmol/L (3.3-5.1); Sodium 138 mmol/L (135-145); Total Protein 7.2 g/dL (6.5-8.0)
== END 2025-08-17 08:25 | disposition home or self-care (01) ==
LOC: HO.LAB 08:24
PROVIDERS: PCP Internal Medicine; Visit Provider Internal Medicine
DX: Z00.00 Encounter for general adult medical examination without abnormal findings (principal); I10 Essential (primary) hypertension; E11.65 Type 2 diabetes mellitus with hyperglycemia; E78.00 Pure hypercholesterolemia, unspecified
CPT/HCPCS: 36415; 80053; 83036

== ENCOUNTER 2025-08-22 15:16 | Outpatient (AMB) | payer OTHER, SELFPAY ==
--- NOTE | 2025-08-22 15:16 | A.OFFVIS_ITS ---
Intake Visit Reasons: 3m/Labs Intake Note: Patient is present for: telehealth 3m follow up Urology Medication:TADALAFIL,TESTOSTERONE Blood Thinner:ASPIRIN Data Processing Clerk Required: No Accompanied by: Self / Same As Patient Allergies No Known Allergies (No Known Allergies*) Allergy (Verified 08/22/25 15:17) HPI Comments Details: Dequan is a [place] male. He is a patient of Dr. Lyle. Seen for the following urologic conditions - renal cyst - hypogonadism - lower urinary tract symptoms - erectile dysfunction diabetic Telemedicine Evaluation 15 min Consultation [employer] Was unable to perform injections himself Had pain at site of pellet insertion Discussed trial of scrotal cream Testosterone prescription provided Apply 50 mg daily to scrotum Check lab work in three-month Lower urinary tract symptoms Hesistancy Current medication includes tamsulosin through PCP This is been effective Hypogonadism Prior evaluation Prior use of testosterone Laboratories - 08/19 281, 01/21 T 354 P 0.2, 11/26 430 Testopel Placement - 08/25, 11/26, 02/24 T response 1st 430 2nd 630 343 3rd 665 Erectile dysfunction Progressive Comorbidity with diabetes multi therapy with dyslipidemia Able to obtain but cannot maintain erection Good response to daily Cialis 5 mg PFSH Medical History HTN (hypertension) Diabetes mellitus, type II Hypogonadism in male Elevated blood pressure reading BPH w/o urinary obs/LUTS Surgical History History of colonoscopy History of lithotripsy History of surgery Social History Alcohol intake: never Patient Tobacco Use Status: Never used Tobacco Second Hand Smoke Exposure: No Review of Systems Const All systems reviewed & are unremarkable except as noted in HPI and below Reports no additional complaints Resp Reports no additional complaints GI Reports no additional complaints Reports as per HPI Musc Reports no additional complaints Physical Exam Telemedicine evaluation Appropriate responses Regular breathing rate and rhythm HEENT Head: Yes normal to inspection Ears: hearing grossly normal bilaterally Eyes General: appearance normal, both eyes and all related structures Neck Neck: Yes normal visual inspection Chest Chest palpation & inspection: normal inspection of the chest Resp Effort & Inspection: normal respiratory effort and able to speak in complete sentences Telehealth Telehealth Telehealth Platform: [employer] Location of provider rendering services: practice address Location of patient: address on file Patient Identification confirmed using: Name, : Yes Telehealth method: video Patient verbally consented to treatment: Yes Patient verbally consented to billing insurance company: Yes Patient informed of any privacy concerns related to visit: Yes Minutes spent on Phone/Video with Pt.: 15 Assessment & Plan Assessment & Plan (1) Erectile dysfunction associated with type 2 diabetes mellitus: Code(s): E11.69 - Type 2 diabetes mellitus with other specified complication; N52.1 - Erectile dysfunction due to diseases classified elsewhere Category: Medical Plan Trial testosterone Three-month follow-up lab work office Orders: Orders Testosterone, Total 3 Months E29.1 - Testicular hypofunction Medications: New testosterone - Testosterone Cream (not gel base) - 100mg/ml - Disp 60cc - apply 1 click daily and massage into scrotum - [facility] - - Patient Cell - [phone] 50 mg transdermal DAILY 150 grams 1RF 30 days E29.1 - Testicular hypofunction Refilled tadalafil 10 mg PO DAILY 90 tabs 1RF sexual activity 90 days E11.69 - Type 2 diabetes mellitus with other specified complication, N52.1 - Erectile dysfunction due to diseases classified elsewhere Patient Instructions: This note is constructed using voice recognition software. While every effort has been made to ensure accuracy machine shorthand teacher errors may have been included. Imaging studies, laboratory and physical exam results were discussed and reviewed in detail. No major barriers to patient understanding were identified. An opportunity to ask questions regarding the treatment plan was provided. All questions were answered. The patient expressed understanding and agreement with the above treatment plan. The patient is aware they should contact our office by phone for worsening of their current condition or the appearance of new urologic symptoms. Compliance is encouraged with any medications and followup testing that is ordered. It is a privilege to participate in the urologic care of your patient. If you have any questions or concerns regarding treatment for the above conditions, or other urologic issues, please do not hesitate to contact me. The office telephone contact is [phone]. Sincerely, Dr Nikolas Alfaro MD, [facility] - Urology Compassionate Specialist Care for the Genitourinary System Coding Level of Care Code Tele Est Pt Level 4 (05556) Complex EM visit Add On G2211 Diagnoses Erectile dysfunction associated with type 2 diabetes mellitus E11.69; N52.1
== END 2025-08-22 16:44 | disposition home or self-care (01) ==
LOC: HO.HUSH 15:16
PROVIDERS: PCP Internal Medicine; Visit Provider Urology
DX: E11.69 Type 2 diabetes mellitus with other specified complication (principal); N52.1 Erectile dysfunction due to diseases classified elsewhere
CPT/HCPCS: 99214